=== PATIENT | female | born 1970 | race Hispanic/Latino ===

== ENCOUNTER 2023-03-30 14:48 | Emergency (ER) | payer OTHER, SELFPAY ==
--- OUTSIDE RECORDS SUMMARY | 2023-03-30 14:57 | XMS REPORT | Continuity of Care Document ---
:1970 Author Organization [facility] t Address [address] [place] [address] Care Team Providers Name Role Phone Lucho LOVETT M.D. Primary Care Physician CAROLINE Attending Clinician Unavailable Tara Severino Attending Clinician Unavailable Raoul DIMAS, Hayden Dejesus Attending Clinician [phone] Karlie DIMAS, Kasey Hebert Attending Clinician MIO WYATT Attending Clinician Unavailable JULIENNE BANEGAS Attending Clinician Unavailable Ben Dooley MD Attending Clinician Reji Roque DO Attending Clinician [phone] Nilesh DIMAS, Kallie Attending Clinician Evangelist DIMAS, Lexii Shaw Attending Clinician Herbie DIMAS, Julio Fried Attending Clinician Jorge Baker MD, I Attending Clinician Ben Shelley MD Attending Clinician Mary DIMAS, Elif Delarosa Attending Clinician [phone] Nick Horvath MD Attending Clinician Clau Wheat DO Attending Clinician Thomas DIMAS, Harshil Attending Clinician Janel Baker DO Attending Clinician Keyla Anthony MD Attending Clinician Karsten Kennedy CRNA Attending Clinician [phone] Rogers Han MD Attending Clinician Jethro Angulo MD Attending Clinician [phone] Jaden Martinez MD Attending Clinician Obisesrahel_drake Attending Clinician Unavailable [facility] Attending Clinician Unavailable Miles_Safia Attending Clinician Unavailable DENNIS_KELLIE Admitting Clinician Unavailable Tara Severino Admitting Clinician Unavailable KASEY RG Admitting Clinician Unavailable REJI ROQUE Admitting Clinician Unavailable JORGE BAKER Admitting Clinician Unavailable MD JULIO STONER Admitting Clinician Unavailable MD ELIF ROBERTS Admitting Clinician Unavailable JANEL BAKER Admitting Clinician Unavailable MD HARSHIL GUZMAN Admitting Clinician Unavailable Obisesnick Admitting Clinician Unavailable KYHOP Admitting Clinician Unavailable Miles_M Admitting Clinician Unavailable Payers Payer Name Policy Type Policy Number Effective Date Expiration Date S deepak OTHER CI [id number] OTHER BL [id number] David [id number] [address] [facility] 00:00:00 00:00:00 Patient [facility] Goldy Ragland [id number] [address] [facility] 00:00:00 00:00:00 Patient [facility] Problems Condition Condition Condition Status Onset Resolution Last Treating Co mments Source Name Details Category Date Date Treatment Clinician Date Pyelonephr Pyelonephr Disease Active M ethodi itis itis 07-18 st 00:00: Hospita 00 l Urinary Urinary Disease Active [facility] tract tract 8 st infection infection 00:00: Hosp chanel associated associated 00 l with with indwelling indwelling urethral urethral catheter, catheter, initial initial encounter encounter Urinary Urinary Disease Active [facility] tract tract 8 st infection infection 00:00: Hosp chanel associated associated 00 l with with indwelling indwelling urethral urethral catheter catheter Urinary Urinary Disease Active [facility] retention retention 06-21 st 00:00: Hospita 00 l Status Status Disease Active [facility] post post 06-02 st placement placement 00:00: Hosp chanel of of 00 l ureteral ureteral stent stent Right Right Disease Active [facility] lower lower 06-02 st quadrant quadrant 00:00: Hospit a abdominal abdominal 00 l pain pain Urinary Urinary Disease Active [facility] incontinen incontinen 06-02 st ce ce 00:00: Hospita 00 l Hydronephr Hydronephr Disease Active M ethodi osis with osis with 06-01 st ureteral ureteral 00:00: Hospit a stricture, stricture, 00 l not not elsewhere elsewhere classified classified Acute UTI Acute UTI Disease Active Met hodi 06-02 st 00:00: Hospita 00 l Mixed Mixed Problem Active [facility] anxiety Anxiety 1-07 da and and 00:00: [facility] depressive Depressive 00 al disorder Disorder Health Outreac h Program Vitamin D Vitamin D Problem Active 2019-11 [facility] deficiency Deficiency 2-11 da 00:00: [facility] 00 al [facility] Prediabete Prediabete Problem Active 2019-11 M [facility] s s 2-11 da 00:00: [facility] 00 wy Health [facility]re[facility] Program Lactic Lactic Disease Active [facility] acidosis acidosis 12-14 00:00: Hospita 00 l Cystitis Cystitis Disease Active Metho di 12-14 00:00: Hospita 00 l Dysphagia Dysphagia Disease Active Overview: [facility] 12-[address] 00:00: g of this Hospita 00 note l might be different from the original. Added automatic ally from request for surgery [id number] Malignant Malignant Problem Active [facility] tumor of Tumor of 11-26 da cervix [facility]:00: [facility] Cardiomega Problem Active [facility] S t ly [facility] Sepsis Problem Active [facility] Syncope Problem Active [facility] Bilateral Problem Active [facility] hydronephr [facility] osis [facility]ever Problem Active [facility] Flank pain Problem Active [facility] S t [facility] History of Problem Active [facility] S malignant [facility] neoplasm Patient of cervix [facility] Hyperlipid Problem Active [facility] S t emia [facility] Hypertensi Problem Active [facility] S t on [facility] Hypokalemi Problem Active [facility] S t a [facility] Nausea and Problem Active [facility] S t vomiting [facility] Ureteral Problem Active [facility] stent [facility] Allergies, Adverse Reactions, Alerts Allergy Allergy Status Severity Reaction(s) Onset Inactive Treating Comm ents Source Name Type Date Date Clinician Iodine Allergy Active Severe hives, 2021-[address] [facility] Grapefru Propensi Active Hives Method i it ty to 06-02 st adverse 00:00: Hospita reaction 00 l s to drug Iodine Propensi Active Swelling Per pt, Metho di ty to 1-18 "throat st adverse 00:00: swells Hospita reaction 00 up" l s to drug iodine DA Active [facility] Social History Social Habit Start Date Stop Date Quantity Comments Source History SDOH [facility] Alcohol Std Drinks Hospit al History SDOH [facility] Gender identity [facility] Sexual orientation [facility] History of tobacco [facility] Alcohol intake 2022-12-20 2022-12-20 Lifetime [facility] 00:00:00 00:00:00 non-drinker Hospital (finding) History of Social 2022-12-20 2022-12-[address] function 00:00:00 00:00:00 Hospital History SDOH 2019-12-15 2019-12-15 1 [facility] Alcohol Frequency 00:00:00 00:00:00 Hospita l Tobacco use and 2019-12-13 2019-12-13 Smokeless [facility] exposure 00:00:00 00:00:00 tobacco non-user Hospital Sex Assigned At [birth year] [facility] 00:00:00 00:00:00 Hospital Smoking Status Start Date Stop Date Source Never smoked tobacco (finding) [facility] Medications Ordered Filled Start Stop Current Ordering Indication Dosage Frequency Signature Comments Components Source Medication Medication Date Date Medication? Clinician (SIG) Name Name Tramadol Tramadol Yes [address] Hcl Hcl 3-27 Hours as [facility] 23:51: needed for Patient 09 Pain [facility] Amlodipine Amlodipine [address] Besylate Besylate 3-27 [facility] 23:51: Patient 00 [facility] Oxybutynin Oxybutynin Yes [address] Chloride Chloride 3-27 needed for L [facility] 23:51: Bladder Patient 00 Spasms [facility] Nitrofurant Nitrofurant Yes [address] oin oin 2-27 [facility] Monohyd/M-C Monohyd/M-C 15:41: Patient ryst ryst 00 s (Macrobid (Macrobid Medic al 100 Mg 100 Mg Center Capsule) Capsule) 100 Mg 100 Mg CAPSULE CAPSULE amLODIPine Yes 5mg QD Take 1 Metho di (NORVASC) 5 1-27 tablet (5 st mg tablet 16:56: mg total) Hos igor 03 by mouth l daily. oxybutynin Yes 5mg QD Take 1 Metho di XL 1-27 tablet (5 st (DITROPAN-X 16:56: mg total) H ospita L) 5 MG 24 03 by mouth l hr tablet daily. amLODIPine 2023-0 Yes 5mg QD Take 1 Metho di (NORVASC) 5 12-22 tablet (5 st mg tablet 16:56: mg total) Hos igor 03 by mouth l daily. oxybutynin 2023-0 Yes 5mg QD Take 1 Metho di XL 12-22 tablet (5 st (DITROPAN-X 16:56: mg total) H ospita L) 5 MG 24 03 by mouth l hr tablet daily. nitrofurant 2023-0 2023- No 100mg QD Take 1 Me thodi oin, 12-[address] macrocrysta 16:56: 00:00 (100 mg Ho spita l-monohydra 03 :00 total) by l te, mouth (MACROBID) daily. 100 MG capsule nitrofurant 2023-0 2023- No 100mg QD Take 1 Me thodi oin, 12-[address] macrocrysta 16:56: 00:00 (100 mg Ho spita l-monohydra 03 :00 total) by l te, mouth (MACROBID) daily. 100 MG capsule atorvastati 2023-0 Yes 10mg QD Take 1 Meth iliana n (LIPITOR) - tablet (10 st 10 mg 16:57: mg total) Hospita tablet 40 by mouth l daily. atorvastati 2023-0 Yes 10mg QD Take 1 Meth iliana n (LIPITOR) - tablet (10 st 10 mg 16:57: mg total) Hospita tablet 40 by mouth l daily. cephalexin 2023-0 2023- No 500mg [id number] Take 1 [facility] (Keflex) 12-21 02-10 [id number] capsule s t 500 MG 00:00: 05:59 3D (500 mg Hospita capsule 00 :00 total) by l mouth 3 (three) times a day for 14 days. cephalexin 2023-0 2023- No 500mg [id number] Take 1 [facility] (Keflex) 12-21 02-10 [id number] capsule s t 500 MG 00:00: 05:59 3D (500 mg Hospita capsule 00 :00 total) by l mouth 3 (three) times a day for 14 days. cholecalcif No [id number] Q7D Take 50 Methodi jason, 1-25 01-[address] vitamin D3, 13:36: 00:00 (50,000 Ho spita 1,000 unit 07 :00 Units l tablet total) by mouth once a week. cholecalcif 2022- No [id number] Q7D Take 50 Methodi jason, 1-25 01-[address] vitamin D3, 13:36: 00:00 (50,000 Ho spita 1,000 unit 07 :00 Units l tablet total) by mouth once a week. Atorvastati Atorvastati 2021-[address] n Calcium n Calcium 208 9:00PM [facility] 12:26: Patient 00 [facility] Cefdinir Cefdinir 2021-[address] (Omnicef) (Omnicef) 205 Day [facility] 300 Mg 300 Mg 18:46: Patient CAPSULE CAPSULE 00 [facility] Oxybutynin Oxybutynin 2021-[address] Chloride Chloride 2-05 [facility] (Ditropan (Ditropan 18:46: Pat ient Xl) 5 Mg Xl) 5 Mg 00 s TAB.ER.24 TAB.ER.24 [facility] Oxybutynin Oxybutynin 2021-[address] Chloride Chloride 2-05 [facility] (Ditropan (Ditropan 18:46: Pat ient Xl) 5 Mg Xl) 5 Mg 00 s TAB.ER.24 TAB.ER.24 [facility] Cefdinir Cefdinir 2021-11 No [address] t. (Omnicef) (Omnicef) 2-05 02-27 Day [facility] 300 Mg 300 Mg 18:46: 16:41 Patient CAPSULE CAPSULE 00 :00 [facility] Ciprofloxac Ciprofloxac 2021-11 [address] in Hcl in Hcl 1-13 Hours [facility] (Cipro) 500 (Cipro) 500 17:51: Patient Mg TABLET Mg TABLET 00 s [facility] Ciprofloxac Ciprofloxac 2021-11 Yes [address] in Hcl in Hcl 1-13 Hours [facility] (Cipro) 500 (Cipro) 500 17:51: Patient Mg TABLET Mg TABLET 00 s [facility] Ciprofloxac Ciprofloxac 2021-11- No [address] in Hcl in Hcl 1-13 12-08 Hours [facility] (Cipro) 500 (Cipro) 500 17:51: 13:26 Patient Mg TABLET Mg TABLET 00 :00 [facility] cholecalcif Yes [id number] Q7D Take 50 M ethodi jason, 8-[address] vitamin D3, 20:45: (50,000 Hos [facility]or 1,000 unit 03 Units l tablet total) by mouth once a week. cholecalcif Yes [id number] Q7D Take 50 M ethodi jason, 8-[address] vitamin D3, 20:45: (50,000 Hos igor 1,000 unit 03 Units l tablet total) by mouth once a week. atorvastati Yes 10mg QD Take 10 mg Methodi n (LIPITOR) 8-[address] 10 mg 20:58: daily. Hospita tablet 14 l atorvastati Yes 10mg QD Take 10 mg Methodi n (LIPITOR) 8-[address] 10 mg 20:58: daily. Hospita tablet 14 l nitrofurant 2021- No 100mg QD Take 1 Me thodi oin, 8-20 10-[address] macrocrysta 00:00: 05:59 (100 mg Ho spita l-monohydra 00 :00 total) by l te, mouth (Macrobid) daily for 100 MG 90 days. capsule nitrofurant 2021-0 2021- No 100mg QD Take 1 Me thodi oin, 8-25 11-[address] macrocrysta 00:00: 05:59 (100 mg Ho spita l-monohydra 00 :00 total) by l te, mouth (Macrobid) daily for 100 MG 90 days. capsule nitrofurant 2021- No 100mg QD Take 1 Me thodi oin, 8- 11-[address] macrocrysta 00:00: 05:59 (100 mg Ho spita l-monohydra 00 :00 total) by l te, mouth (Macrobid) daily for 100 MG 90 days. capsule nitrofurant 2021- No 100mg QD Take 1 Me thodi oin, 07-[address] macrocrysta 00:00: 05:59 (100 mg Ho spita l-monohydra 00 :00 total) by l te, mouth (Macrobid) daily for 100 MG 90 days. capsule amoxicillin 2021- No 1{tbl} Q.5D Take 1 M ethodi -pot 07-[address] clavulanate 00:00: 04:59 mouth 2 Ho spita (Augmentin) 00 :00 (two) l 875-125 mg times a per tablet day for 7 days. amoxicillin 2021- No 1{tbl} Q.5D Take 1 M ethodi -pot 07-[address] clavulanate 00:00: 04:59 mouth 2 Ho spita (Augmentin) 00 :00 (two) l 875-125 mg times a per tablet day for 7 days. amoxicillin 2021- No 1{tbl} Q.5D Take 1 M ethodi -pot 07-[address] clavulanate 00:00: 04:59 mouth 2 Ho spita (Augmentin) 00 :00 (two) l 875-125 mg times a per tablet day for 7 days. amoxicillin 2021- No 1{tbl} Q.5D Take 1 M ethodi -pot 07-[address] clavulanate 00:00: 04:59 mouth 2 Ho spita (Augmentin) 00 :00 (two) l 875-125 mg times a per tablet day for 7 days. morPHINE 2021-2021- No [id number] 15mg Q12H Take 1 Metho di immediate-r 07-20-31 tablet (15 s t elease 15 00:00: 04:59 mg total) Ho spita MG tablet 00 :00 by mouth l every 12 (twelve) hours as needed for severe pain for up to 5 days .acute pain. Max Daily Amount: 30 mg morPHINE 2021-2021- [place] [id number] 15mg Q12H Take 1 Metho di immediate-r 8-25 -31 tablet (15 s t elease 15 00:00: 04:59 mg total) Ho spita MG tablet 00 :00 by mouth l every 12 (twelve) hours as needed for severe pain for up to 5 days .acute pain. Max Daily Amount: 30 mg morPHINE 2022-0 2- No [id number] 15mg Q12H Take 1 Metho di immediate-r 8-25 -31 tablet (15 s t elease 15 00:00: 04:59 mg total) Ho spita MG tablet 00 :00 by mouth l every 12 (twelve) hours as needed for severe pain for up to 5 days .acute pain. Max Daily Amount: 30 mg morPHINE 2022-0 2- No [id number] 15mg Q12H Take 1 Metho di immediate-r 8-25 - tablet (15 s t elease 15 00:00: 04:59 mg total) Ho spita MG tablet 00 :00 by mouth l every 12 (twelve) hours as needed for severe pain for up to 5 days .acute pain. Max Daily Amount: 30 mg sulfamethox 2021-0 2021- No 1{tbl} Q.5D Take 1 M ethodi azole-trime 06-28 [facility]: 04:59 mouth Hospita (BACTRIM 00 :00 every 12 l DS) 800-160 (twelve) mg per hours for tablet 7 days. sulfamethox 202-0 2021- No 1{tbl} Q.5D Take 1 M ethodi azole-trime 06-28 tablet by reading hospitaloprim 00:00: 04:59 mouth Hospita (BACTRIM 00 :00 every 12 l DS) 800-160 (twelve) mg per hours for tablet 7 days. sulfamethox 2-0 2021- No 1{tbl} Q.5D Take 1 M ethodi azole-trime 06-28 tablet by reading hospitaloprim 00:00: 04:59 mouth Hospita (BACTRIM 00 :00 every 12 l DS) 800-160 (twelve) mg per hours for tablet 7 days. sulfamethox 2022-0 2021- No 1{tbl} Q.5D Take 1 M ethodi azole-trime [address] thoprim 00:00: 04:59 mouth Hospita (BACTRIM 00 :00 every 12 l DS) 800-160 (twelve) mg per hours for tablet 7 days. metformin 2021- No Q.5D Take by Meth iliana HCl 06-[address] (METFORMIN 02:35: 00:00 (two) Hospi ta ORAL) 54 :00 times a l day with meals. Unsure of dosage metformin 2021- No Q.5D Take by Meth iliana HCl 06-[address] (METFORMIN 02:35: 00:00 (two) Hospi ta ORAL) 54 :00 times a l day with meals. Unsure of dosage metformin 2021- No Q.5D Take by Meth iliana HCl 06-[address] (METFORMIN 02:35: 00:00 (two) Hospi ta ORAL) 54 :00 times a l day with meals. Unsure of dosage metformin 2021- No Q.5D Take by Meth iliana HCl 06-[address] (METFORMIN 02:35: 00:00 (two) Hospi ta ORAL) 54 :00 times a l day with meals. Unsure of dosage amLODIPine 2021- No 5mg QD Take 1 Meth iliana (NORVASC) 5 7-30 08-30 tablet (5 st mg tablet 00:00: 04:59 mg total) Ho spita 00 :00 by mouth l daily for 30 days. amLODIPine 2021- No 5mg QD Take 1 Meth iliana (NORVASC) 5 7-30 08-30 tablet (5 st mg tablet 00:00: 04:59 mg total) Ho spita 00 :00 by mouth l daily for 30 days. amLODIPine 2021-2021- No 5mg QD Take 1 Meth iliana (NORVASC) 5 7-30 08-30 tablet (5 st mg tablet 00:00: 04:59 mg total) Ho spita 00 :00 by mouth l daily for 30 days. amLODIPine 2021- No 5mg QD Take 1 Meth iliana (NORVASC) 5 7-30 08-30 tablet (5 st mg tablet 00:00: 04:59 mg total) Ho spita 00 :00 by mouth l daily for 30 days. amLODIPine 2-0 2022- No 2.5mg QD Take 2.5 M ethodi (NORVASC) 06-23 07-[address] 2.5 mg 19:34: 00:00 mouth Hospita tablet 26 :00 daily. l amLODIPine 2-0 2022- No 2.5mg QD Take 2.5 M ethodi (NORVASC) 06-23 07-[address] 2.5 mg 19:34: 00:00 mouth Hospita tablet 26 :00 daily. l amLODIPine 2021-0 2022- No 2.5mg QD Take 2.5 M ethodi (NORVASC) 06-23 07-[address] 2.5 mg 19:34: 00:00 mouth Hospita tablet 26 :00 daily. l amLODIPine 2021-0 2022- No 2.5mg QD Take 2.5 M ethodi (NORVASC) 06-23-[address] 2.5 mg :34: 00:00 mouth Hospita tablet 26 :00 daily. l ciprofloxac 2021-0 2022- No 500mg Q.5D Take 1 Me thodi in (CIPRO) 06-[address] 500 MG 00:00: 00:00 (500 mg Hospita tablet 00 :00 total) by l mouth 2 (two) times a day for 7 days. ciprofloxac 2-0 2022- No 500mg Q.5D Take 1 Me thodi in (CIPRO) 06-23- tablet st 500 MG 00:00: 00:00 (500 mg Hospita tablet 00 :00 total) by l mouth 2 (two) times a day for 7 days. ciprofloxac 2-0 2022- No 500mg Q.5D Take 1 Me thodi in (CIPRO) 06-23- tablet st 500 MG 00:00: 00:00 (500 mg Hospita tablet 00 :00 total) by l mouth 2 (two) times a day for 7 days. ciprofloxac 2022-0 2022- No 500mg Q.5D Take 1 Me thodi in (CIPRO) 06-23- tablet st 500 MG 00:00: 00:00 (500 mg Hospita tablet 00 :00 total) by l mouth 2 (two) times a day for 7 days. ciprofloxac 2022-0 2022- No 750mg Q.5D Take 1 Me thodi in HCl 06-[address] (CIPRO) 750 00:00: 04:59 (750 mg Ho spita MG tablet 00 :00 total) by l mouth 2 (two) times a day for 7 days. ciprofloxac 2022-0 2022- No 750mg Q.5D Take 1 Me thodi in HCl 06-[address] (CIPRO) 750 00:00: 04:59 (750 mg Ho spita MG tablet 00 :00 total) by l mouth 2 (two) times a day for 7 days. ciprofloxac 2021-0 2022- No 750mg Q.5D Take 1 Me thodi in HCl 06-[address] (CIPRO) 750 00:00: 04:59 (750 mg Ho spita MG tablet 00 :00 total) by l mouth 2 (two) times a day for 7 days. ciprofloxac 2-0 2022- No 750mg Q.5D Take 1 Me thodi in HCl 06-[address] (CIPRO) 750 00:00: 04:59 (750 mg Ho spita MG tablet 00 :00 total) by l mouth 2 (two) times a day for 7 days. keTOROlac 1-0 2021- No 10mg Q6H Take 1 Metho di (TORadol) 7-09 01-16 tablet (10 st 10 mg 00:00: 04:59 mg total) Hospit a tablet 00 :00 by mouth l every 6 (six) hours as needed for moderate pain for up to 5 days. keTOROlac 2021-0 2021- No 10mg Q6H Take 1 Metho di (TORadol) 7-10 07-10 tablet (10 st 10 mg 00:00: 00:00 mg total) Hospit a tablet 00 :00 by mouth l every 6 (six) hours as needed for moderate pain for up to 5 days. keTOROlac 2021-0 2021- No 10mg Q6H Take 1 Metho di (TORadol) 7-10 07-10 tablet (10 st 10 mg 00:00: 00:00 mg total) Hospit a tablet 00 :00 by mouth l every 6 (six) hours as needed for moderate pain for up to 5 days. atorvastati Yes 10mg QD Take 10 mg Methodi n (LIPITOR) 06-[address] 10 mg 23:39: daily. Hospita tablet 46 l amLODIPine Yes 2.5mg QD Take 2.5 Me thodi (NORVASC) 06-[address] 2.5 mg 23:39: mouth Hospita tablet 46 daily. l metformin Yes Q.5D Take by Metho di HCl 06-[address] (METFORMIN 23:39: (two) Hospit a ORAL) 46 times a l day with meals. Unsure of dosage levoFLOXaci No 500mg QD Take 1 Me thodi n 06-03 07-[address] (Levaquin) 00:00: 04:59 (500 mg Hos igor 500 MG 00 :00 total) by l tablet mouth daily [place] 14 [place] [id number] 50mg Q6H Take 1 Metho di (Ultram) 50 06-03 07-20 tablet (50 s t mg tablet 00:00: 04:59 mg total) Ho spita 00 :00 by mouth l every 6 (six) hours as needed for moderate pain for up to 10 days .acute pain. ceftriaxone ceftriaxone No ceftriaxon [place] 1 gram 1 gram 3-25 e 1 gram da solution solution 16:22: solution E [facility] for for 42 for al injectionTa injectionTa injectionT [facility] ke 1 g by ke 1 g by rolan 1 g by Outreac injection injection injection h route. route. route. Program albuterol albuterol No albuterol [place] sulfate HFA sulfate HFA sulfate da 90 90 HFA 90 [facility] mcg/actuati mcg/actuati mcg/actuat al on aerosol on aerosol ion Hea lth inhaler INL inhaler INL aerosol Outreac 1 TO 2 PFS 1 TO 2 PFS inhaler h PO Q 4 TO 6 PO Q 4 TO 6 INL 1 TO 2 Program H PRF COUGH H PRF COUGH PFS PO Q 4 TO 6 H PRF COUGH amlodipine amlodipine No 1 Q1D amlodipine [place] 5 mg tablet 5 mg tablet 5 mg d a Take 1 Take 1 tablet [facility] tablet tablet Take 1 al every day every day tablet Hea lth by oral by oral every day Outr eac route for route for by oral h 30 days. 30 days. route for Pr ogram 30 days. atorvastati atorvastati No atorvastat [place] n 10 mg n 10 mg in 10 mg da tablet TAKE tablet TAKE tablet [facility] 1 TABLET BY 1 TABLET BY TAKE 1 al MOUTH EVERY MOUTH EVERY TABLET BY Health DAY AT DAY AT MOUTH Outreac BEDTIME BEDTIME EVERY DAY h AT BEDTIME Program buspirone buspirone No buspirone [place] 7.5 mg 7.5 mg 7.5 mg da tablet TAKE tablet TAKE tablet [facility] ONE (1) ONE (1) TAKE ONE al TABLET(S) TABLET(S) (1) Healt h BY MOUTH BY MOUTH TABLET(S) Ou treac TWICE A TWICE A BY MOUTH h DAY. DAY. TWICE A Program DAY. ceftriaxone ceftriaxone No 1g ceftriaxon [place] 1 gram 1 gram e 1 gram da solution solution solution Epi sc[facility] for for for al injection injection injection Health Take 1 g by Take 1 g by Take 1 g Outreac injection injection by h route. route. injection Progra m route. cholestyram cholestyram No 4g TID cholestyra [place] ine (bulk) ine (bulk) mine da powder Take powder Take (bulk) [facility] 4 g 3 times 4 g 3 times powder al a day by a day by Take 4 g 3 H ealth miscell. miscell. times a Outr eac route route day by h before before miscell. Program meals for meals for route 30 days. 30 days. before meals for 30 days. cholestyram cholestyram No cholestyra [place] ine (with ine (with mine (with da sugar) 4 sugar) 4 sugar) 4 Epi scop gram oral gram oral gram oral al powder TAKE powder TAKE powder Health 4GM BY 4GM BY TAKE 4GM Outreac MOUTH MOUTH BY MOUTH h DIRECTED DIRECTED Program THREE TIMES THREE TIMES DIRECTED DAILY DAILY THREE BEFORE BEFORE TIMES MEALS MEALS DAILY BEFORE MEALS ergocalcife ergocalcife No ergocalcif [place] rol rol jason da (vitamin (vitamin (vitamin Epi scop D2) 1,250 D2) 1,250 D2) 1,250 al mcg (50,000 mcg (50,000 mcg H ealth unit) unit) (50,000 Outreac capsule capsule unit) h TAKE 1 TAKE 1 capsule Program CAPSULE BY CAPSULE BY TAKE 1 MOUTH EVERY MOUTH EVERY CAPSULE BY WEEK WEEK MOUTH EVERY WEEK metformin metformin No metformin [place] ER 500 mg ER 500 mg ER 500 mg da tablet,exte tablet,exte tablet,ext [facility] nded nded ended al release 24 release 24 release 24 Health hr TAKE 1 hr TAKE 1 hr TAKE 1 Outreac TABLET BY TABLET BY TABLET BY h MOUTH EVERY MOUTH EVERY MOUTH Program DAY DAY EVERY DAY zolpidem 5 zolpidem 5 No zolpidem 5 [place] mg tablet mg tablet mg tablet da TAKE ONE TAKE ONE TAKE ONE Epi scop (1) (1) (1) al TABLET(S) TABLET(S) TABLET(S) Health BY MOUTH BY MOUTH BY MOUTH Out reac EVERY DAY. EVERY DAY. EVERY DAY. h Program Vital Signs Vital Name Observation Time Observation Value Comments Source Oxygen saturation by 2023-02-23 17:06:00 100 /min [facility] Pulse oximetry Patient [facility] BP Diastolic 2023-02-23 17:06:00 82 mm[Hg] [facility] Body Temperature 2023-02-20 07:22:00 100.0 [degF] [facility] BMI (Body Mass 2023-02-19 23:30:00 25.9 kg/m2 [facility] Index) [facility] Height 2023-02-19 13:12:00 [id number] cm [facility] Weight 2023-02-19 13:12:00 58.824848 kg [facility] Oxygen saturation by 2022-10-30 18:32:00 99 /min [facility] Pulse oximetry Patient [facility] Height 2022-10-30 16:18:00 149.850647 cm [facility] Weight 2022-10-30 16:18:00 58.871160 kg [facility] BMI (Body Mass 2022-10-30 16:18:00 25.9 kg/m2 [facility] Index) Patient [facility] Oxygen saturation by 2022-10-08 18:20:00 99 /min [facility] Pulse oximetry Patient [facility] BP Diastolic 2022-10-08 18:20:00 84 mm[Hg] [facility] Oxygen saturation by 2022-10-08 18:20:00 99 /min [facility] Pulse oximetry Patient [facility] BP Diastolic 2022-10-08 18:20:00 84 mm[Hg] [facility] Height 2022-10-08 14:22:00 149.171691 cm [facility] Weight 2022-10-08 14:22:00 58.041704 kg [facility] BMI (Body Mass 2022-10-08 14:22:00 25.9 kg/m2 [facility] Index) Patient [facility] BP Diastolic 2021-02-17 00:00:00 81 mm[Hg] [place] [facility] Height 2021-02-17 00:00:00 59 [in_i] [place] [facility] BMI (Body Mass 2021-02-17 00:00:00 27.9 kg/m2 [facility] 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 Index) [facility] BP Systolic 2021-02-17 00:00:00 121 mm[Hg] [place] [facility] Body Weight 2021-02-17 00:00:00 138 [lb_av] [place] [facility] BP Diastolic 2020-12-02 00:00:00 85 mm[Hg] [place] [facility] Height 2020-12-02 00:00:00 59 [in_i] [place] [facility] BMI (Body Mass 2020-12-02 00:00:00 28.1 kg/m2 [place] 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 Index) [facility] BP Systolic 2020-12-02 00:00:00 132 mm[Hg] [place] [facility] Body Weight 2020-12-02 00:00:00 2224 [oz_av] [place] [facility] BP Diastolic 2020-11-03 00:00:00 86 mm[Hg] [place] [facility] Height 2020-11-03 00:00:00 59 [in_i] [place] [facility] BMI (Body Mass 2020-11-03 00:00:00 27.3 kg/m2 [facility] 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 Index) [facility] BP Systolic 2020-11-03 00:00:00 140 mm[Hg] [place] [facility] Body Weight 2020-11-03 00:00:00 2160 [oz_av] [place] [facility] BP Diastolic 2020-11-02 00:00:00 100 mm[Hg] [place] [facility] Height 2020-11-02 00:00:00 59 [in_i] [place] [facility] BMI (Body Mass 2020-11-02 00:00:00 27.6 kg/m2 [facility] 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 Index) [facility] BP Systolic 2020-11-02 00:00:00 139 mm[Hg] [place] [facility] Body Weight 2020-11-02 00:00:00 136.8 [lb_av] [place] [facility] Systolic blood 2022-12-21 20:58:08 131 mm[Hg] [facility] pressure Diastolic blood 2022-12-21 20:58:08 76 mm[Hg] [facility] pressure Heart rate 2022-12-21 20:58:08 79 /min [facility] Body temperature 2022-12-21 20:58:08 36.39 [facility] Respiratory rate 2022-12-21 20:58:08 22 /min [facility] Oxygen saturation in 2022-12-21 20:58:08 99 /min [facility] Arterial blood by Pulse oximetry Body weight 2022-12-20 19:32:00 57.38 kg [facility] BMI 2022-12-20 19:32:00 25.55 kg/m2 [facility] Body height 2022-12-20 09:12:00 149.9 cm [facility] Systolic blood 2022-07-21 00:09:51 110 mm[Hg] [facility] pressure Diastolic blood 2022-07-21 00:09:51 77 mm[Hg] [facility] Hospital pressure Heart rate 2022-07-21 00:09:51 90 /min [facility] Body temperature 2022-07-21 00:09:51 36.78 [facility] Respiratory rate 2022-07-21 00:09:51 18 /min [facility] Oxygen saturation in 2022-07-21 00:09:51 97 /min [facility] Arterial blood by Pulse oximetry Body height 2022-07-18 17:57:00 149.9 cm [facility] Body weight 2022-07-18 17:57:00 58.968 kg [facility] BMI 2022-07-18 17:57:00 26.26 kg/m2 [facility] Body temperature 2021-06-03 21:44:00 37.72 [facility] Systolic blood 2021-06-03 20:00:00 111 mm[Hg] [facility] Hospital pressure Diastolic blood 2021-06-03 20:00:00 66 mm[Hg] [facility] Hospital pressure Heart rate 2021-06-03 20:00:00 81 /min [facility] Respiratory rate 2021-06-03 20:00:00 18 /min [facility] Oxygen saturation in 2021-06-03 20:00:00 98 /min [facility] Arterial blood by Pulse oximetry Body height 2021-06-02 17:23:00 149.9 cm [facility] Body weight 2021-06-02 03:48:00 67.132 kg [facility] BMI 2021-06-02 03:48:00 29.89 kg/m2 [facility] Procedures Procedure Date / Time Performing Clinician Source Performed CT of abdomen and pelvis 2023-02-19 13:35:00 [facility] CBC WITH PLATELET AND 2022-12-21 12:26:00 Florecita Johnson [facility] DIFFERENTIAL [facility] PROTHROMBIN TIME WITH INR 2022-12-21 12:26:00 JumawanAbbott [facility] [place] PARTIAL THROMBOPLASTIN 2022-12-21 12:26:00 [facility] TIME (PTT) [place] COMPREHENSIVE METABOLIC 2022-12-21 12:26:00 [facility] PANEL [place] MAGNESIUM LEVEL 2022-12-21 12:26:00 [facility] ospital [place] ESTIMATED GFR 2022-12-21 12:26:00 [facility] LACTIC ACID LEVEL, SEPSIS 2022-12-20 15:38:00 [facility] - NOW AND REPEAT 2X EVERY 3 HOURS COVID-19 QUALITATIVE 2022-12-20 14:02:00 [facility] RT-PCR LACTIC ACID LEVEL, SEPSIS 2022-12-20 12:25:00 [facility] - NOW AND REPEAT 2X EVERY 3 HOURS URINE CULTURE 2022-12-20 11:59:[address] [facility] URINALYSIS SCREEN AND 2022-12-20 11:33:00 [facility] MICROSCOPY, WITH REFLEX TO CULTURE CT RENAL STONE PROTOCOL 2022-12-20 09:46:16 [facility] BLOOD CULTURE, AEROBIC & 2022-12-20 09:21:00 [facility] ANAEROBIC CBC WITH PLATELET AND 2022-12-20 09:21:00 [facility] DIFFERENTIAL COMPREHENSIVE METABOLIC 2022-12-20 09:21:00 [facility] PANEL LIPASE LEVEL 2022-12-20 09:21:[address] [facility] LACTIC ACID LEVEL, SEPSIS 2022-12-20 09:21:00 [facility] - NOW AND REPEAT 2X EVERY 3 HOURS ESTIMATED GFR 2022-12-20 09:21:[address] [facility] US DUPLEX VENOUS LOWER 2022-07-20 15:07:00 Nilesh [facility] EXTREMITY RIGHT BASIC METABOLIC PANEL 2022-07-20 11:42:00 Nilesh [facility] CBC HEMOGRAM 2022-07-20 11:42:00 Kallie Galloway spital ESTIMATED GFR 2022-07-20 11:42:00 Kallie Galloway spital POC GLUCOSE 2022-07-20 00:32:00 Reji Roque H ospital Evangelist BASIC METABOLIC PANEL 2022-07-19 14:13:00 Nilesh [facility] ESTIMATED GFR 2022-07-19 14:13:00 Nilesh [facility] Mandaen Ho spital COVID-19 QUALITATIVE 2022-07-19 04:52:00 [facility] RT-PCR LACTIC ACID LEVEL, SEPSIS 2022-07-19 04:25:00 [facility] - NOW AND REPEAT 2X EVERY 3 HOURS URINE CULTURE 2022-07-19 01:34:[address] [facility] ospital HCG QUALITATIVE, URINE 2022-07-19 01:01:00 [facility] SCREEN URINALYSIS SCREEN AND 2022-07-19 00:55:00 Ben Dooley [facility] MICROSCOPY, WITH REFLEX TO CULTURE LACTIC ACID LEVEL, SEPSIS 2022-07-18 21:51:00 [facility] - NOW AND REPEAT 2X EVERY 3 HOURS BLOOD CULTURE, AEROBIC & 2022-07-18 21:50:00 [facility] ANAEROBIC CT RENAL STONE PROTOCOL 2022-07-18 20:59:54 [facility] CBC WITH PLATELET AND 2022-07-18 20:00:00 [facility] DIFFERENTIAL COMPREHENSIVE METABOLIC 2022-07-18 20:00:00 [facility] PANEL LIPASE LEVEL 2022-07-18 20:00:00 [facility] HCG QUALITATIVE, SERUM 2022-07-18 20:00:00 [facility] SCREEN ESTIMATED GFR 2022-07-18 20:00:00 ScoutAndreeaNguyendusty Herrera [facility] POC GLUCOSE 2022-06-28 12:37:00 Carmita Bakeram Nelson [facility] POC GLUCOSE 2022-06-28 11:32:00 Nissa Bakerurram I [facility] POC GLUCOSE 2022-06-28 01:35:00 Nissa Bakerurram I [facility] POC GLUCOSE 2022-06-27 21:18:00 Nissa Bakerurram I [facility] POC GLUCOSE 2022-06-27 16:23:00 Nissa Bakerurram I [facility] POC GLUCOSE 2022-06-27 12:21:00 Nissa Bakerurram I [facility] BASIC METABOLIC PANEL 2022-06-27 10:33:00 Carmita Bakeram [facility] CBC WITH PLATELET AND 2022-06-27 10:33:00 Baker, Jorge [facility] DIFFERENTIAL ESTIMATED GFR 2022-06-27 10:33:00 Carmita Bakeram Nelson [facility] POC GLUCOSE 2022-06-27 01:22:00 Nissa Bakerurram I [facility] POC GLUCOSE 2022-06-26 21:35:00 Carmita Bakeram I [facility] POC GLUCOSE 2022-06-26 16:19:00 Carmita Bakeram Nelson [facility] POC GLUCOSE 2022-06-26 12:40:00 Carmita Bakeram Nelson [facility] LACTIC ACID LEVEL, SEPSIS 2022-06-26 11:46:00 Lexii Blanca [facility] - NOW AND REPEAT 2X EVERY 3 HOURS COVID-19 QUALITATIVE 2022-06-26 06:53:00 Lexii Blanca [facility] RT-PCR LACTIC ACID LEVEL, SEPSIS 2022-06-26 05:59:00 Lexii Blanca [facility] - NOW AND REPEAT 2X EVERY 3 HOURS HEMOGLOBIN A1C 2022-06-26 05:56:00 Viviane Briceño Ho spital LIPID PANEL 2022-06-26 05:56:00 Viviane Briceño Ho spital URINE CULTURE 2022-06-26 04:49[facility]00 [facility] AND 2022-06-26 04:27[facility]00 [facility], WITH REFLEX TO CULTURE BLOOD CULTURE, AEROBIC & 2022-06-26 04:21[facility] WITH PLATELET AND 2022-06-26 04:21:00 [facility] DIFFERENTIAL COMPREHENSIVE METABOLIC 2022-06-26 04:21[facility]00 [facility] LACTIC ACID LEVEL, SEPSIS 2022-06-26 04:21:00 Evangelist [facility] - NOW AND REPEAT 2X EVERY 3 HOURS HCG QUANTITATIVE, SERUM 2022-06-26 04:21:00 [facility] ESTIMATED GFR 2022-06-26 04:21:00 [facility] ECG ED PRELIMINARY 2022-06-26 04:19:42 Evangelist [facility] INTERPRETATION CT RENAL STONE PROTOCOL 2022-06-26 04:07:46 [facility]LEAD 2022-06-26 03:00:31 [facility] POC [facility]SE 2022-06-23 21:21:00 [facility] A POTASSIUM LEVEL 2022-06-23 17:46:00 [facility] A POC GLUCOSE 2022-06-23 16:49:00 [facility] 2022-06-23 12:13:00 Karsten [facility] CBC WITH PLATELET AND 2022-06-23 11:44:00 [facility] DIFFERENTIAL [facility] A COMPREHENSIVE METABOLIC 2022-06-23 11:44:00 [facility] PANEL [facility] A ESTIMATED GFR 2022-06-23 11:44:00 [facility] A POTASSIUM LEVEL 2022-06-22 23:26:00 Kasey Rg [facility] Eliana Hebert CBC HEMOGRAM 2022-06-22 11:26:00 [facility] BASIC METABOLIC PANEL 2022-06-22 11:26:00 [facility] ESTIMATED GFR 2022-06-22 11:26:00 [facility] LACTIC ACID LEVEL, SEPSIS 2022-06-21 12:00:00 [facility] - NOW AND REPEAT 2X EVERY 3 HOURS URINE CULTURE 2022-06-21 10:30:00 Ben Shelley [facility] COVID-19 QUALITATIVE 2022-06-21 10:08:00 [facility] RT-PCR URINALYSIS SCREEN AND 2022-06-21 09:48:00 [facility], WITH REFLEX TO CULTURE HCG QUALITATIVE, URINE 2022-06-21 09:48:00 [facility] SCREEN LACTIC ACID LEVEL, SEPSIS 2022-06-21 09:03:00 [facility] NOW AND REPEAT 2X EVERY 3 HOURS MI CRITICAL CARE 2022-06-21 06:21:24 [facility] ILL/INJURED PATIENT INIT 30-74 MIN BLOOD CULTURE, AEROBIC & 2022-06-21 06:20:00 [facility] ANAEROBIC CBC WITH PLATELET AND 2022-06-21 06:20:00 [facility] DIFFERENTIAL COMPREHENSIVE METABOLIC 2022-06-21 06:20:00 [facility] PANEL LACTIC ACID LEVEL, SEPSIS 2022-06-21 06:20:00 [facility] NOW AND REPEAT 2X EVERY 3 HOURS ESTIMATED GFR 2022-06-21 06:20:00 [facility] CT RENAL STONE PROTOCOL 2022-06-21 06:18:26 [facility] FL PYELOGRAM RETROGRADE 2022-06-02 14:27:00 Rogers Han Phu [facility] MI AN ELECTIVE 2022-06-02 13:35:00 [facility] SUPRAGLOTTIC AIRWAY Nichalaus CYSTO STENT INSERTION 2022-06-02 13:24:00 Rogers Han [place] [id number] ANTI-SPIKE IGG 2022-06-02 10:10:00 Teddy Jameson [facility] ANTIBODY TITER Serjio CBC WITH PLATELET AND 2022-06-02 10:10:[address] [facility] DIFFERENTIAL BASIC METABOLIC PANEL 2022-06-02 10:10:00 Rogers Han [facility]19 SEROLOGY 2022-06-02 10:10:00 Teddy Jameson [facility] PATIENT SURVEILLANCE Serjio ESTIMATED GFR 2022-06-02 10:10:00 YrnuigbAbe del toro [facility] HEMOGLOBIN A1C 2022-06-01 09:37:00 [facility] LIPID PANEL 2022-06-01 09:37:00 [facility] COVID-19 QUALITATIVE 2022-06-01 09:35:00 Clau Wheat [facility] RT-PCR COMPREHENSIVE METABOLIC 2022-06-01 05:38:00 SvClau matamoros [facility] PANEL CBC WITH PLATELET AND 2022-06-01 05:38:00 Clau Wheat [facility] DIFFERENTIAL ESTIMATED GFR 2022-06-01 05:38:[address] ABDOMEN PELVIS WO 2022-06-01 05:28:48 Clau Wheat [facility] CONTRAST CT HEAD WO CONTRAST 2022-06-01 05:28:40 Clau Wheat [facility] URINE CULTURE 2022-06-01 04:40:00 Clau Wheat spital URINALYSIS SCREEN AND 2022-06-01 04:14:00 Clau Wheat [facility] MICROSCOPY, WITH REFLEX TO CULTURE HC COMPLETE BLD COUNT 2021-06-03 10:37:[address] [facility] W/AUTO DIFF COMPREHENSIVE METABOLIC 2021-06-03 10:37:00 Rogers Han [facility] PANEL ESTIMATED GFR 2021-06-03 10:37:00 [facility] FL PYELOGRAM RETROGRADE 2021-06-02 20:01:50 Rogers Han [facility] MI AN ELECTIVE 2021-06-02 19:28:45 Aileen Sheriff [facility] SUPRAGLOTTIC AIRWAY CYSTO, URETEROSCOPY 2021-06-02 19:02:[address] [facility] LACT[facility]ID LEVEL, SEPSIS 2021-06-02 11:45:00 [facility] - NOW AND REPEAT 2X EVERY 3 HOURS COVID-19 QUALITATIVE 2021-06-02 08:37:00 Ben Shelley [facility] RT-PCR LACTIC ACID LEVEL, SEPSIS 2021-06-02 07:38:00 [facility] - NOW AND REPEAT 2X EVERY 3 HOURS URINE CULTURE 2021-06-02 06:05:00 Ben Shelley [facility] URINALYSIS SCREEN AND 2021-06-02 05:48:00 Ben Shelley [facility] MICROSCOPY, WITH REFLEX TO CULTURE HCG QUALITATIVE, URINE 2021-06-02 05:48:[address] [facility] SCREEN CT RENAL STONE PROTOCOL 2021-06-02 04:29:44 [facility] BLOOD CULTURE, AEROBIC & 2021-06-02 04:05:00 [facility] ANAEROBIC BLOOD CULTURE, AEROBIC & 2021-06-02 03:47:00 [facility] ANAEROBIC LACTIC ACID LEVEL, SEPSIS 2021-06-02 03:47:00 [facility] NOW AND REPEAT 2X EVERY 3 HOURS HC COMPLETE BLD COUNT 2021-06-02 03:21:00 Ben Shelley [facility] W/AUTO DIFF COMPREHENSIVE METABOLIC 2021-06-02 03:21:[address] [facility] PANEL LIPASE LEVEL 2021-06-02 03:21:00 [facility] Shel[facility] ESTIMATED GFR 2021-06-02 03:21:00 Sukumar Zafar [facility] MAMMO, screening, digital, 2021-02-17 00:00:00 Safia oralia [facility] ELECTROCARDIOGRAM, 2020-11-03 00:00:00 [facility] Hysterectomy 2002-01-24 00:00:00 [facility] Section [facility] Cholecystectomy [facility] Plan of Care Planned Activity Planned Date Details Comments Source Future Scheduled Test 2023-03-15 BREAST CANCER [facility] 00:49:18 SCREENING [code = BREAST CANCER SCREENING] Future Scheduled Test 2023-03-15 COLONOSCOPY [facility] 00:49:18 SCREENING [code = COLONOSCOPY SCREENING] Future Scheduled Test 2023-03-15 SHINGLES VACCINES (1 [facility] 00:49:18 of 2) [code = SHINGLES VACCINES (1 of 2)] Future Scheduled Test 2023-03-[address] [facility] 00:49:18 [code = INFLUENZA VACCINE] Future Scheduled Test 2023-03-15 COVID-19 VACCINE [facility] 00:49:18 (#1) [code = COVID-19 VACCINE (#1)] Future Scheduled Test 2023-03-15 Hepatitis C [facility] 00:49:18 screening (procedure) [code = 100167156] Future Scheduled Test 2023-03-15 Screening for [facility] 00:49:18 malignant neoplasm of cervix (procedure) [code = 875252346] Future Scheduled Test 2023-01-12 COVID-19 VACCINE [facility] 14:55:47 (#1) [code = COVID-19 VACCINE (#1)] Future Scheduled Test 2023-01-12 Hepatitis C [facility] 14:55:47 screening (procedure) [code = 920219546] Future Scheduled Test 2023-01-12 Screening for [facility] 14:55:47 malignant neoplasm of cervix (procedure) [code = 139953313] Future Scheduled Test 2023-01-12 BREAST CANCER [facility] 14:55:47 SCREENING [code = BREAST CANCER SCREENING] Future Scheduled Test 2023-01-12 COLONOSCOPY [facility] 14:55:47 SCREENING [code = COLONOSCOPY SCREENING] Future Scheduled Test 2023-01-[address] [facility] 14:55:47 [code = INFLUENZA VACCINE] Future Scheduled Test 2023-01-12 SHINGLES VACCINES (1 [facility] 14:55:47 of 2) [code = SHINGLES VACCINES (1 of 2)] Future Scheduled Test 2022-09-28 HEPATITIS B VACCINES [facility] 13:18:29 (1 of 3 - 3-dose series) [code = HEPATITIS B VACCINES (1 of 3 - 3-dose series)] Future Scheduled Test 2022-09-28 COVID-19 VACCINE [facility] 13:18:29 (#1) [code = COVID-19 VACCINE (#1)] Future Scheduled Test 2022-09-28 Hepatitis C [facility] 13:18:29 screening (procedure) [code = [id number]] Future Scheduled Test 2022-09-28 Screening for [facility] 13:18:29 malignant neoplasm of cervix (procedure) [code = 475270170] Future Scheduled Test 2022-09-28 BREAST CANCER [facility] 13:18:29 SCREENING [code = BREAST CANCER SCREENING] Future Scheduled Test 2022-09-28 COLONOSCOPY [facility] 13:18:29 SCREENING [code = COLONOSCOPY SCREENING] Future Scheduled Test 2022-09-[address] [facility] 13:18:29 [code = INFLUENZA VACCINE] Future Scheduled Test 2022-09-28 SHINGLES VACCINES (1 [facility] 13:18:29 of 2) [code = SHINGLES VACCINES (1 of 2)] Future Scheduled Test 2022-09-28 HEPATITIS B VACCINES [facility] 13:18:29 (1 of 3 - 3-dose series) [code = HEPATITIS B VACCINES (1 of 3 - 3-dose series)] Future Scheduled Test 2022-09-28 COVID-19 VACCINE [facility] 13:18:29 (#1) [code = COVID-19 VACCINE (#1)] Future Scheduled Test 2022-09-28 Hepatitis C [facility] 13:18:29 screening (procedure) [code = [id number]] Future Scheduled Test 2022-09-28 Screening for [facility] 13:18:29 malignant neoplasm of cervix (procedure) [code = 173569982] Future Scheduled Test 2022-09-[address] [facility] 13:18:29 SCREENING [code = BREAST CANCER SCREENING] Future Scheduled Test 2022-09-28 COLONOSCOPY Method [facility] 13:18:29 SCREENING [code = COLONOSCOPY SCREENING] Future Scheduled Test 2022-09-28 INFLUENZA VACCINE M [facility] 13:18:29 [code = INFLUENZA VACCINE] Future Scheduled Test 2022-09-28 [facility]IN[facility] 13:18:29 of 2) [code = SHINGLES VACCINES (1 of 2)] Diagnostic Test 2021-02-17 urinalysis, dipstick [facility] Pending 00:00:00 [code = urinalysis, [facility] dipstick] Outreach Progra m Diagnostic Test 2021-02-17 culture, urine [code [facility] Pending 00:00:00 = culture, urine] [facility] Diagnostic Test 2021-02-17 cytology report, [place] Pending 00:00:00 thin prep, smear or [facility] scraping, cervical [facility]reach [facility] or vaginal [code = cytology report, thin prep, smear or scraping, cervical or vaginal] Diagnostic Test 2021-02-17 CMP, serum or plasma [facility] Pending 00:00:00 [code = CMP, serum [facility] or plasma] Outreach [facility] Diagnostic Test 2021-02-17 CBC w/ auto diff [place] Pending 00:00:00 [code = CBC w/ auto [facility] diff] Out[facility] Diagnostic Test 2021-02-17 RPR (rapid plasma [place] Pending 00:00:00 reagin), serum [code [facility] = RPR (rapid plasma Outreach Program reagin), serum] Diagnostic Test 2021-02-17 HBsAg (hepatitis B [place] 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 Pending 00:00:00 surface Ag), EIA, [facility] serum [code = HBsAg Outreach Program (hepatitis B surface Ag), EIA, serum] Diagnostic Test 2021-02-17 HIV 1+2 AB + HIV 1 [place] 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 Pending 00:00:00 p24 Ag, qualitative [facility] immunoassay, serum Outreach Program [code = HIV 1+2 AB + HIV 1 p24 Ag, qualitative immunoassay, serum] Diagnostic Test 2021-02-17 TSH + free T4, serum [place] [facility] Pending 00:00:00 [code = TSH + free [facility] T4, serum] Outreach Chu[facility] m Diagnostic Test 2021-02-17 lipid panel, serum [place] 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 Pending 00:00:00 [code = lipid panel, [facility] serum] Out[facility] Future Scheduled Test COVID-19 VACCINE (1) [facility] [code = COVID-19 VACCINE (1)] Future Scheduled Test Hepatitis C [facility] screening (procedure) [code = 196092224] Future Scheduled Test Screening for [facility] malignant neoplasm of cervix (procedure) [code = 710721651] Future Scheduled Test INFLUENZA VACCINE [facility] [code = INFLUENZA VACCINE] Instructions Urinary Tract [facility] Infection, Adult, Patient Co dical [id number] Instructions Urinary Tract [facility] Infection, Adult, Patient Co dical [id number] Instructions Ureteral Stent [facility] Implantation, Care Patient M edical After Center Encounters Start End Encounter Admission Attending Care Care Encounter Source Date/Time Date/Time Type Type Clinicians Facility Department ID 2022-05-10 Outpatient [facility] [id number] [place] 15:10:00 [id number] Formerly [facility] 2022-02-24 Outpatient [facility] [id number] [place] 15:05:30 [id number] Formerly [facility] 2022-02-22 Outpatient [facility] [id number] [place] 13:32:19 [id number] Formerly [facility] 2023-03-21 2023-03-21 Outpatient TK [facility] 107 [id number] [place] 00:00:00 00:00:00 SSA 94973 da [facility]re[facility] 2023-02-19 2023-02-[address] [facility] [id number] 13:47:00 19:46:00 Inpatient [facility] [id number] [facility] [id number] [address] 2023-02-192023-02-23 Inpatient [facility] [id number] 12:47:00 18:46:00 -[id number] [facility] 2023-01-24 2023-01-24 Outpatient [facility] [id number] 07:16:00 07:16:00 -[id number] [facility] 2022-12-20 2022-12-21 [facility] Hayden Loeg 1.2.840.1 [id number] Methodi 03:23:00 16:56:00 Encounter [place] A [address]779.1.[address] 3.430.2.7 Hospit a .3.354381 l .8 2022-12-20 2022-12-21 [facility] 1.2.840.1 [id number] Methodi 03:23:00 16:56:00 Encounter Kasey Rg A 41175.1.[address] 3.430.2.7 Hospit a .3.236177 l .8 2022-12-20 2022-12-20 Travel 1.2.840.1 1.2.825.279 [id number] Methodi 00:00:00 00:00:[address] 3.430.2.7 0.2.7.3.698 Ho spita .3.295318 084.8 l .8 2022-12-20 2022-12-20 Travel 1.2.840.1 1.2.005.572 1184 [id number] Methodi 00:00:00 00:00:[address] 3.430.2.7 0.2.7.3.698 Ho spita .3.343789 084.8 l .8 2022-11-03 2022-11-03 Outpatient [facility] [id number] 11:05:00 11:05:00 -[id number] [facility] 2022-10-30 2022-10-[address] [id number] [address]. 14:57:00 19:10:00 Emergency [facility] [id number] [facility] Patients [id number] [address] 2022-10-30 2022-10-30 Registered 3 YOSELIN [facility] A [id number] St. 12:38:00 12:38:00 Clinic Patients 44 [facility] 2022-10-30 2022-10-30 Outpatient [facility] [id number] 11:38:00 11:38:00 -[id number] [facility] 2022-10-08 2022-10-08 Departed 1 BANEGAS, [facility]' [id number] 14:12:00 18:00:00 Emergency JULIENNE Patients 63 Zac e's Room [facility] 2022-10-08 2022-10-08 Emergency [facility] [id number] 13:12:00 17:00:00 -[id number] [facility] 2022-09-11 2022-09-11 Registered 3 YOSELIN [facility] A [id number] St. 09:21:00 09:21:00 Clinic Patients 32 [facility] 2022-09-11 2022-09-11 Outpatient [facility] [id number] 08:21:00 08:21:00 -[id number] [facility] 2022-09-05 2022-09-05 Outpatient [id number] 12:45:00 12:45:00 3 2022-09-01 2022-09-01 Outpatient [id number] 12:45:00 12:45:00 3 2022-08-31 2022-08-31 Outpatient [id number] 11:00:00 11:00:00 3 2022-07-18 2022-07-20 [facility] Arben Dooleylevon Solis 1.2.840.1 [id number] Methodi 15:19:00 20:45:00 Encounter Reji Roque 92660.1.[address] Ninoa, Kallie 3.430.2.7 Hos igor .3.610168 l .8 2022-07-18 2022-07-20 [facility] Arben Dooleylevon Solis 1.2.840.1 [id number] Methodi 15:19:00 20:45:00 Encounter Reji Roque 56591.1.[address] Raja, Kallie 3.430.2.7 Hos igor .3.616627 l .8 2022-07-18 2022-07-18 Travel 1.2.840.1 1.2.789.235 0202 [id number] Methodi 00:00:00 00:00:[address] 3.430.2.7 0.2.7.3.698 Ho spita .3.326913 084.8 l .8 2022-07-18 2022-07-18 Travel 1.2.840.1 1.2.051.872 9557 [id number] Methodi 00:00:00 00:00:[address] 3.430.2.7 0.2.7.3.698 Ho spita .3.016242 084.8 l .8 2022-06-25 2022-06-28 [facility] Lexii Valeria 1.2.840.1 10 [id number] Methodi 22:44:00 12:21:00 Encounter Julio Sotner Amod 63705.1.1 709 [facility] 3.430.2.7 Hospita .3.360179 l .8 2022-06-25 2022-06-28 [facility] 1.2.840.1 10 [id number] Methodi 22:44:00 12:21:00 Encounter Julio Stoner Amod 72012.1.[address] Joreg Baker I 3.430.2.7 Hospita .3.153210 l .8 2022-06-21 2022-06-23 [facility] Ben Shelley 1.2.840.1 104 [id number] Methodi 01:00:00 19:34:00 Encounter Elif Roberts Delarosa 61256.1.[address] [facility] 3.4 30.2.7 Hospita .3.615543 l .8 2022-06-21 2022-06-23 [facility] Ben Shelley 1.2.840.1 104 [id number] Methodi 01:00:00 19:34:00 Encounter Elif Roberts Delarosa 33960.1.[address] [facility] Mohamed A 3.4 30.2.7 Hospita .3.413061 l .8 2022-06-22 2022-06-22 Prep for Kannady, 1.2.840.1 [id number] 2100 [id number] Methodi 00:00:00 00:00:00 Surgery Christopher 24002.1.[address] 3.430.2.7 Hospit a .3.796586 l .8 2022-06-22 2022-06-22 Prep for Kannady, 1.2.840.1 [id number] [id number] Methodi 00:00:00 00:00:00 Surgery Christopher 55031.1.[address] 3.430.2.7 Hospit a .3.937359 l .8 2022-05-31 2022-06-02 [facility] Clau Wheat R 1.2.840.1 [id number] Methodi 23:35:00 20:40:00 Encounter Harshil Guzman 89883.1.[address] Julio Stoner Amod 3.430.2.7 Hospita BakerJanel mcginnis Lb .3.714781 l .8 2022-05-31 2022-06-02 [facility] Clau Wheat 1.2.840.1 [id number] Methodi 23:35:00 20:40:00 Encounter Harshil Guzman 65713.1.[address] [facility] Amod 3.430.2.7 Hospita Janel Bakerl .3.151283 l .8 2022-06-02 2022-06-02 Anesthesia Keyla Anthony 1.2.840.1 10 [id number] Methodi 08:29:00 09:36:00 Event Karsten Kennedy 00272.1.[address] 3.430.2.7 Hospit a .3.869701 l .8 2022-06-02 2022-06-02 Anesthesia Keyla Anthony 1.2.840.1 10 [id number] Methodi 08:29:00 09:36:00 Event Karsten Kennedy 57803.1.[address] 3.430.2.7 Hospit a .3.162315 l .8 2022-06-02 2022-06-02 Surgery Emely Rogers 1.2.840.1 [id number] 2100 [id number] Methodi 08:25:00 09:30:[address] 3.430.2.7 Hospit a .3.929064 l .8 2022-06-02 2022-06-02 Surgery Emely Rogers 1.2.840.1 [id number] 2099 [id number] Methodi 08:25:00 09:30:[address] 3.430.2.7 Hospit a .3.269932 l .8 2022-06-01 2022-06-01 Travel 1.2.840.1 1.2.652.357 2256 [id number] Methodi 00:00:00 00:00:[address] 3.430.2.7 0.2.7.3.698 Ho spita .3.889390 084.8 l .8 2022-06-01 2022-06-01 Travel 1.2.840.1 1.2.031.826 7699 [id number] Methodi 00:00:00 00:00:[address] 3.430.2.7 0.2.7.3.698 Ho spita .3.013146 084.8 l .8 2021-06-04 2021-06-04 Orders Roque, 1.2.840.1 [id number] [id number] Methodi 00:00:00 00:00:00 Only Reji 49379.1.[address] Evangelist 3.430.2.7 Hospit a .3.093941 l .8 2021-06-01 2021-06-03 Hospital Ben Shelley 1.2.840.1 104 [id number] Methodi 22:19:00 18:38:00 Encounter Harshil Guzman 53364.1.[address] RoqueReji 3.430.2.7 [facility] Amod .3.782087 l .8 2021-06-02 2021-06-02 Anesthesia Jethro Angulo 1.2.840. 1 [id number] Methodi 14:11:00 14:58:00 Event Jaden Martinez 15693.1.[address] 3.430.2.7 Hospit a .3.857149 l .8 2021-06-02 2021-06-02 Surgery Rogers Han 1.2.840.1 [id number] 2100 [id number] Methodi 12:50:00 13:56:[address] 3.430.2.7 Hospit a .3.947398 l .8 2021-04-01 2021-04-01 Outpatient Obisesan_ad [facility] 107 [id number] [place] 04:16:00 04:16:00 ekunbi 84484 [facility] 2021-02-17 2021-02-17 Outpatient Obisesan_ad [facility] 107 [id number] [place] 05:32:00 05:32:00 ekunbi 02166 [facility] 2021-02-17 2021-02-17 Kellie [facility] [place] - [id number] [place] 00:00:00 00:00:00 Crystal Costa, Sikhism Ep[facility] p FERRYBOAT HELPER: [address], 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 2021-01-24 2021-01-24 Outpatient Obisesan_ad ME[facility]OP [facility] 107 [id number] [place] 03:58:00 03:58:00 ekunbi 43517 [facility] 2021-01-17 2021-01-17 Outpatient Obisesan_ad [facility]OP [facility] 107 [id number] [place] 11:54:00 11:54:00 ekunbi 41396 [facility] 2020-12-30 2020-12-30 Outpatient Obisesan_ad [facility] 107 [id number] [place] 03:04:00 03:04:00 ekunbi 99065 [facility] 2020-12-02 2020-12-02 Outpatient [facility] [id number]- [place] 04:18:00 04:18:00 [id number] [facility] 2020-12-02 2020-12-02 Adekunbi [facility] [place] - [id number] [place] 00:00:00 00:00:00 Alma Palacio 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 - [facility] al [place], [facility] [address] h , Ph. Program 2020-11-30 2020-11-30 Outpatient [facility]OP [facility] [id number]- [place] 10:55:00 10:55:00 92403 [facility] 2020-11-05 2020-11-05 Outpatient [facility]OP [facility] [id number] 202 [place] 12:42:00 12:42:00 72927 [facility] 2020-11-03 2020-11-03 Outpatient MEHOP ME[facility]OP [facility] [id number]- 202 [place] 05:30:00 05:30:00 [id number] [facility] 2020-11-03 2020-11-03 Drake [facility] [place] - [id number] [place] 00:00:00 00:00:00 Alma Palacio 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 [place] Outreac [address] h , Ph. 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 - [facility] [address] [place] [facility] [phone] , Ph. 2020-11-01 2020-11-01 Outpatient [facility] [id number] [place] 06:41:00 06:41:00 [id number] [facility] 2020-10-29 2020-10-29 Outpatient [facility] [id number] [place] 05:12:00 05:12:00 [id number] [facility] 2020-08-18 2020-08-18 Outpatient Hawkins_M MMG MMG [id number] [place] 01:23:00 01:23:00 0923 da [facility] 2020-03-11 2020-03-11 Outpatient [facility] KY[facility]OP [facility] [id number]- 202 [place] 10:49:00 10:49:00 [id number] [facility] 2019-12-10 2019-12-10 Outpatient KY[facility] [id number]- 202 [place] 11:01:00 11:01:00 14469 [facility] Results Test Description Test Time Test Comments Results Result Comments Source Blood leukocytes automated count (number/volume) 2023-02-23 06:39:00 Test Item Value Reference Range Interpretation Comme nts White Blood Count (test code = 6690-2) 4.46 4.8-10.8 [facility] count (number/volume)2023-02-23 06:39:00 Test Item Value Reference Range Interpretation Comments Red Blood Count (test code = 789-8) 2.97 3.6-5.1 [facility] measurement (moles/volume) 2023-02-23 06:39:00 Test Item Value Reference Range Interpretation Comments Hemoglobin (test code = 54031-4) 8.4 12.0-16.0 [facility] blood hematocrit (volume fraction) 2023-02-23 06:39:00 Test Item Value Reference Range Interpretation Comments Hematocrit (test code = 4544-3) 27.1 34.2-44.1 [facility] erythrocyte mean corpuscular volume 2023-02-23 06:39:00 Test Item Value Reference Range Interpretation Comments Mean Corpuscular Volume (test code = 91.2 81-99 787-2) [facility] mean corpuscular hemoglobin (mass per erythrocyte)2023-02-23 06:39:00 Test Item Value Reference Range Interpretation Comments Mean Corpuscular Hemoglobin (test code 28.3 28-32 = 785-6) [facility] erythrocyte mean corpuscular hemoglobin concentration measurement (mass/volume)2023-02-23 06:39:00 Test Item Value Reference Range Interpretation Comments Mean Corpuscular Hemoglobin Concent 31.0 31-35 (test code = 786-4) [facility]iscoRDW KyvGq-Xui0779-28-31 06:39:00 Test Item Value Reference Range Interpretation Comments Red Cell Distribution Width (test code 12.9 11.7-14.4 = 41823-3) [facility] blood platelet count (count/volume) 2023-02-23 06:39:00 Test Item Value Reference Range Interpretation Comments Platelet Count (test code = 777-3) 383 140360 [facility] blood segmented neutrophil count as percentage of total fwsaodynhs6160-72-84 06:39:00 Test Item Value Reference Range Interpretation Comments Neutrophils (%) (Auto) (test code = 57.0 38.7-80.0 85077-5) [facility] blood lymphocyte count as percentage ot total wyxfdjfszs1950-52-92 06:39:00 Test Item Value Reference Range Interpretation Comments Lymphocytes (%) (Auto) (test code = 26.9 18.0-39.1 736-9) [facility] blood monocyte count as percentage of total jofeexvrju3965-49-17 06:39:00 Test Item Value Reference Range Interpretation Comments Monocytes (%) (Auto) (test code = 12.8 4.4-11.3 5905-5) [facility]isco[facility] blood eosinophil count as percentage of total nvseaiuhvs9030-50-49 06:39:00 Test Item Value Reference Range Interpretation Comments Eosinophils (%) (Auto) (test code = 2.7 0.0-6.0 713-8) [facility]isco[facility] blood basophil count as percentage of total uzdyxywvkr9707-66-83 06:39:00 Test Item Value Reference Range Interpretation Comments Basophils (%) (Auto) (test code = 0.2 0.0-1.0 706-2) [facility]iscoFluoroscopic procedure less than one hour oprrhzzm5935-92-44 06:39:00 Test Item Value Reference Range Interpretation Comments IM GRANULOCYTES % (test code = IM 0.4 0.0-1.0 GRANULOCYTES %) [facility] blood neutrophil katri3183-38-39 06:39:00 Test Item Value Reference Range Interpretation Comments Neutrophils # (Auto) (test code = 2.5 2.1-6.9 751-8) [facility] lymphocytes count (number/volume) 2023-02-23 06:39:00 Test Item Value Reference Range Interpretation Comments Lymphocytes # (Auto) (test code = 1.2 1.0-3.2 64897-2) [facility] monocytes automated count (number/volume)2023-02-23 06:39:00 Test Item Value Reference Range Interpretation Comments Monocytes # (Auto) (test code = 742-7) 0.6 0.2-0.8 [facility]isco[facility] blood eosinophil zhuxb0855-20-10 06:39:00 Test Item Value Reference Range Interpretation Comments Eosinophils # (Auto) (test code = 0.1 0.0-0.4 711-2) [facility]isco[facility] blood basophil count (count/volume) 2023-02-23 06:39:00 Test Item Value Reference Range Interpretation Comments Basophils # (Auto) (test code = 704-7) 0.0 0.0-0.1 [facility]iscoFluoroscopic procedure less than one hour xjrnyrgc3908-55-40 06:39:00 Test Item Value Reference Range Interpretation Comments Absolute Immature Granulocyte (auto 0.02 0-0.1 (test code = Absolute Immature Granulocyte (auto) [facility] plasma sodium measurement (moles/volume)2023-02-23 06:39:00 Test Item Value Reference Range Interpretation Comments Sodium Level (test code = 2951-2) 140 136-145 [facility] Mounderum or plasma potassium measurement (moles/volume)2023-02-23 06:39:00 Test Item Value Reference Range Interpretation Comments Potassium Level (test code = 2823-3) 3.7 3.5-5.1 [facility] Mounderum or plasma chloride measurement (moles/volume)2023-02-23 06:39:00 Test Item Value Reference Range Interpretation Comments Chloride Level (test code = 2075-0) 106 98-107 [facility] Mounderum or plasma carbon dioxide, total measurement (moles/volume)2023-02-23 06:39:00 Test Item Value Reference Range Interpretation Comments Carbon Dioxide Level (test code = 26 22-29 2027-9) [facility] Mounderum or plasma anion dzy1697-32-07 06:39:00 Test Item Value Reference Range Interpretation Comments Anion Gap (test code = 35163-7) 11.7 8-16 [facility] Mounderum or plasma urea nitrogen measurement (mass/volume)2023-02-23 06:39:00 Test Item Value Reference Range Interpretation Comments Blood Urea Nitrogen (test code = 06-20 3094-0) [facility] Mounderum or plasma creatinine measurement (mass/volume)2023-02-23 06:39:00 Test Item Value Reference Range Interpretation Comments Creatinine (test code = 2160-0) 0.81 0.57-1.11 [facility] Mounderum or plasma urea nitrogen/creatinine mass cyydp4447-95-61 06:39:00 Test Item Value Reference Range Interpretation Comments BUN/Creatinine Ratio (test code = 05-20 3097-3) [facility] FriscoGlomerular filtration rate/1.73 sq M.predicted [Volume Rate/Area] in Serum, Plasma or Blood by Creatinine-based formula (CKD-EPI 2020)2023-02-23 06:39:00 Test Item Value Reference Range Interpretation Comments Estimated GFR (CKD-EPI) (test code = 88 >=60 07661-9) [facility] FriscoGlucose fdyaesutjmq2694-31-29 06:39:00 Test Item Value Reference Range Interpretation Comments Glucose Level (test code = SCG1417) 100 74-118 [facility]ounder[facility] or plasma calcium measurement (mass/volume)2023-02-23 06:39:00 Test Item Value Reference Range Interpretation Comments Calcium Level (test code = 28791-5) 9.3 8.4-10.2 [facility] Mounderum or plasma total bilirubin measurement (mass/volume)2023-02-23 06:39:00 Test Item Value Reference Range Interpretation Comments Total Bilirubin (test code = 1975-2) 0.1 0.2-1.2 [facility]iscoFluoroscopic procedure less than one hour cqwvxeqc7321-38-96 06:39:00 Test Item Value Reference Range Interpretation Comments Aspartate Amino Transf (AST/SGOT) (test 12 5-34 code = Aspartate Amino Transf (AST/SGOT)) [facility] Mounderum or plasma alanine aminotransferase measurement (enzymatic activity/volume)2023-02-23 06:39:00 Test Item Value Reference Range Interpretation Comments Alanine Aminotransferase (ALT/SGPT) 13 0-55 (test code = 1742-6) [facility] Mounderum or plasma protein measurement (mass/volume)2023-02-23 06:39:00 Test Item Value Reference Range Interpretation Comments Total Protein (test code = 2885-2) 6.4 6.5-8.1 [facility]ounderum or plasma albumin measurement (mass/volume)2023-02-23 06:39:00 Test Item Value Reference Range Interpretation Comments Albumin (test code = 1751-7) 2.4 3.5-5.0 [facility]iscoPlasma globulin measurement (mass/volume) 2023-02-23 06:39:00 Test Item Value Reference Range Interpretation Comments Globulin (test code = 27631-0) 4.0 2.3-3.5 [facility] Mounderum or plasma albumin/globulin mass ratio 2023-02-23 06:39:00 Test Item Value Reference Range Interpretation Comments Albumin/Globulin Ratio (test code = 0.6 0.8-2.0 1759-0) [facility]ounderum or plasma alkaline phosphatase measurement (enzymatic activity/volume)2023-02-23 06:39:00 Test Item Value Reference Range Interpretation Comments Alkaline Phosphatase (test code = 107 40-150 6768-6) [facility]ounder[facility] or plasma iron measurement (mass/volume)2023-02-22 06:20:00 Test Item Value Reference Range Interpretation Comments Iron Level (test code = 2498-4) 39 50-170 [facility] Mounderum or plasma iron binding capacity measurement (mass/volume)2023-02-22 06:20:00 Test Item Value Reference Range Interpretation Comments Total Iron Binding Capacity (test code 251 138-354 = 2500-7) [facility]ounderum or plasma iron saturation measurement (mass fraction)2023-02-22 06:20:00 Test Item Value Reference Range Interpretation Comments Percent Iron Saturation (test code = 16 15-50 2502-3) [facility] Mounderum or plasma transferrin measurement (mass/volume)2023-02-22 06:20:00 Test Item Value Reference Range Interpretation Comments Transferrin (test code = 3034-6) 179 180-382 [facility]ounderum or plasma ferritin measurement (mass/volume)2023-02-22 06:20:00 Test Item Value Reference Range Interpretation Comments Ferritin (test code = 2276-4) 220.87 4.63-204.00 [facility] SC[facility] W/LXTFU5367-79-15 20:06:00 [facility] : 1970 Sex: F [place] [address] Patient Name: SANGEETHA GARZA MR #: [id number] : 1970 Age/Sex: 52/F Req #: [id number] [facility] Physician: TARA SEVERINO MD Ordered by: MIO WYATT MD Report #: [id number] Location: MED/SURG Room/Bed: [facility] Report: Diagnostic Imaging Report Status: Signed Procedure: [id number] NM/RENAL SCAN W/LASIX Exam Date: 02/20/23 Exam Time: 1521 PROCEDURE: Functional RENAL SCAN with DiureticStimulation CPT CODE: 25818 INDICATION: Bilateral hydronephrosis PROTOCOL: 10 mCi of Tc-99m MAG3 wasinjected intravenously. Renal flow images were obtained inthe posterior projection, subsequent serial posterior images were obtained over 40 minutes. 40 mg of furosemide was injected intravenously, 20 minutes after tracer injection. FINDINGS: There is mildly decreased perfusion of both kidneys, left slightly worse than right. Initial renal activity is divided 48% to the left kidney and 52% to the right kidney. Subsequent images show prompt tracer appearance in the calyces and renal pelves. Followingdiuretic injection, there is progressive tracer washout from the renal collecting systems. Half-emptying times were 25 minutes past peak activity on the left and 46 minutes on the right. IMPRESSION: 1.Compared to the most recent previous study of 10/30/2022, renal function is worse bilaterally. 2. Response to diuretic stimulation is similarly worse bilaterally (specifically left/right half-emptying times were nine and 28 minutes respectively on the previous study versus 25 and 46 minutes today. The overall pattern of clearance is similar in the right upper pole now but worse in the right lower poleand in the left kidney generally. 3. The perfusion and washout patterns suggest a combination of renal parenchymal dysfunction, now mildly worse, and functional ureteral obstruction, now also includingthe left kidney (previously only the right). Signed by: Francisco Che on 02/20/2023 8:06 PM Dictated By: Francisco Che MD 07 Transcribed By: Haylee 02/20/232005 COPY TO: MIO WYATT [facility] specimen severe acute respiratory syndrome- related coronavirus antigen detection by lvmdiputoaq5751-34-61 14:46:00 Test Item Value Reference Range Interpretation Comments SARS-CoV-2 Antigen (test code = NOT DETECTED NEGATIVE 91169-4) [facility] color nurukncgwpvwm8343-76-96 14:35:00 Test Item Value Reference Range Interpretation Comments Urine Color (test code = 5778-6) YELLOW YELLOW [facility] spylouj2216-33-35 14:35:00 Test Item Value Reference Range Interpretation Comments Urine Clarity (test code = 00552-6) TURBID CLEAR [facility] Moundpecific gravity of Urine by Test strip 2023-02-19 14:35:00 Test Item Value Reference Range Interpretation Comments Urine Specific [place] (test code = 1.020 1.010-1.025 5811-5) [facility] pH measurement by automated test strip 2023-02-19 14:35:00 Test Item Value Reference Range Interpretation Comments Urine pH (test code = 10082-5) 6.5 5-7 [facility] leukocyte esterase detection by automated test agafa1223-47-31 14:35:00 Test Item Value Reference Range Interpretation Comments Urine Leukocyte Esterase (test code = LARGE NEGATIVE 00219-0) [facility] nitrite detection by automated test pwegp4757-04-83 14:35:00 Test Item Value Reference Range Interpretation Comments Urine Nitrite (test code = 34279-7) POSITIVE NEGATIVE [facility] detection by automated test iljte0793-80-77 14:35:00 Test Item Value Reference Range Interpretation Comments Urine Protein (test code = 28574-6) 2+ NEGATIVE [facility] glucose detection by automated test lyech9762-35-12 14:35:00 Test Item Value Reference Range Interpretation Comments Urine Glucose (UA) (test code = NEGATIVE NEGATIVE 53434-6) [facility] ketones detection by automated test yfkgc5837-90-28 14:35:00 Test Item Value Reference Range Interpretation Comments Urine Ketones (test code = 22837-1) NEGATIVE NEGATIVE [facility] urobilinogen measurement by test strip (mass/volume)2023-02-19 14:35:00 Test Item Value Reference Range Interpretation Comments Urine Urobilinogen (test code = 0.2 0.2-1 09544-8) [facility] total bilirubin yttlpkpvi1574-35-32 14:35:00 Test Item Value Reference Range Interpretation Comments Urine Bilirubin (test code = 1977-8) NEGATIVE NEGATIVE [facility] erythrocytes wkefmgvmt0475-63-61 14:35:00 Test Item Value Reference Range Interpretation Comments Urine Blood (test code = 11623-2) LARGE NEGATIVE [facility]iscoAutom[facility] urine sediment leukocyte count by microscopy (number/high power field)2023-02-19 14:35:00 Test Item Value Reference Range Interpretation Comments Urine WBC (test code = 5821-4) >50 0-5 [facility]iscoErythrocytes detection in urine sediment by light getfhwtmyg2068-94-69 14:35:00 Test Item Value Reference Range Interpretation Comments Urine RBC (test code = 34115-8) >50 0-5 [facility]iscoBacteria detection in urine sediment by light taqshbkhjn2145-38-10 14:35:00 Test Item Value Reference Range Interpretation Comments Urine Bacteria (test code = 38941-6) FEW NONE [facility]iscoEpithelial cells detection in urine sediment by light qjslnhzzyw1473-43-49 14:35:00 Test Item Value Reference Range Interpretation Comments Urine Epithelial Cells (test code = FEW NONE 07967-4) [facility]iscoBacterial urine mwqunuy5884-47-89 14:35:00 Test Item Value Reference Range Interpretation Comments Urine Culture (test PSEUDOMONAS AERUGINOSA code = 630-4) [facility]iscoFluoroscopic procedure less than one hour tvkulbuy7912-56-19 13:41:00 Test Item Value Reference Range Interpretation Comments Lactic Acid Level (test code = Lactic 1.1 0.5-2.0 Acid Level) [facility] or plasma choriogonadotropin ( test) zvxbpixpt2199-89-55 13:41:00 Test Item Value Reference Range Interpretation Comments Human Chorionic Gonadotropin, Qual NEGATIVE NEGATIVE (test code = 2118-8) [facility]Blood cuszxmk8728-99-43 13:41:00 Test Item Value Reference Range Interpretation Comments Blood Culture (test NO GROWTH AFTER 72 code = 90419123) HOURS [facility]iscoCT ABDOMEN/PELVIS [id number] 13:26:00 [facility] : 1970 Sex: F [place] [address] Patient Name: SANGEETHA GARZA MR #: [id number] : 1970 Age/Sex: 52/F Req #: [id number] [facility] Physician: Ordered by: ESEQUIEL ENRIQUEZ PA-C Report #: [id number] Location: ER Room/Bed: Report: Diagnostic Imaging Report Status: Signed Procedure: [id number] CT/CT ABDOMEN/PELVIS WO Exam Date: 02/19/23 Exam Time: 1250 EXAM: CT Abdomen and Pelvis WITHOUT intravenous contrast INDICATION: Bilateral flank pain COMPARISON: CT abdomen pelvis of 10/08/22 TECHNIQUE: Abdomen and pelvis were scanned utilizing a multidetector helical scanner from the lung base to the pubic symphysis without administration of IV contrast. Coronal and sagittal reformationswere obtained. Dose modulation, iterative reconstruction, and/or weight based adjustment of the mA/kV was utilized to reduce the radiation dose to as low as reasonably achievable. IV CONTRAST: None ORAL CONTRAST: Water COMPLICATIONS: None FINDINGS: LOWER THORAX: Normal. HEPATOBILIARY: No focal liver lesions. Status post cholecystectomy. SPLEEN: No splenomegaly. PANCREAS: No focal masses or ductal dilatation. ADRENALS: No adrenal nodules. KIDNEYS/URETERS: Bilateral nephroureteral stents in expected position. Severe bilateral hydronephrosis, worse compared to 10/08/22. No renal or ureteral stones. No suspicious solid or cystic mass. PELVIC ORGANS/BLADDER: Unremarkable. PERITONEUM / RETROPERITONEUM: No free air or fluid. LYMPH NODES: No lymphadenopathy. VESSELS: Moderate atherosclerotic calcifications of the non-aneurysmal abdominal aorta and major branches. GI TRACT: No obstruction or wall thickening. The appendix is not visualized. No inflammatory changes in the right lower quadrant to suggest appendicitis. BONES AND SOFT TISSUES: Unremarkable. IMPRESSION: Worsening severe right greater than left hydronephrosis with bilateral ureteral stents in expected position. Signed by: Florence Lucero on 02/19/2023 1:26 PM Dictated By: FLORENCE LUCERO MD 1329 Transcribed By: GRAZYNA on 02/19/23 1326 COPY TO: ESEQUIEL ENRIQUEZ PA-C SARS-CoV-2 (COVID-19) RNA [Presence] in Respiratory specimen by MAUREEN with probe yjufjnihl1790-87-69 15:59:17 Test Item Value Reference Range Interpretation Comments SARS-CoV-2 (COVID-19) RNA Not detected [Presence] in Respiratory specimen by MAUREEN with probe detection (test code = 92283-1) Whether patient is employed in a Unknown healthcare setting (test code = 94823-6) Whether the patient has symptoms Unknown related to condition of interest (test code = 36527-6) Whether the patient was Unknown hospitalized for condition of interest (test code = 73621-9) Whether the patient was admitted Unknown to intensive care unit (ICU) for condition of interest (test code = 48916-4) Whether patient resides in a Unknown congregate care setting (test code = 77595-7) status (test code = Unknown 83769-3) Date and time of symptom onset Unknown (test code = 09398-8) [address]2022-11-03 13:10:00 [facility] : 1970 Sex: F [place] [address] Patient Name: SANGEETHA GARZA MR #: [id number] : 1970 Age/Sex: 52/F Req #: [id number] Adm Physician: Ordered by: MIO WYATT MD Report #: [id number] Location: OR Room/Bed: -- Report: Diagnostic Imaging Report Status: Signed Procedure: [id number] DX/ABDOMEN- 1VIEW (KUB) Exam Date: 11/03/22 Exam Time: 1221 Exam: ABDOMEN-1VIEW (KUB) Date: 11/03/2022 1:09 PM Indication:Ureteral stents COMPARISON: CT abdomen pelvis 10/08/2022 DISCUSSION/IMPRESSION: Bilateral double-J ureteral stentsin place, pigtails in appropriate positions. No radiographic evidence of renal stone. Right upper drea drant clips in place, consistent with prior cholecystectomy. Nonspecific nonobstructive bowel gas pattern. No evidence of free air within the limitations of this study. Signed by: Zackery Rocha on 11/03/2022 1:10 PM Dictated By: ZACKERY ROCHA MD 11 Transcribed By: GRAZYNA on 11/03/221309 COPY TO: MIO WYATT MDUrine color byxqkujsmradf9382-96-72 16:44:00 Test Item Value Reference Range Interpretation Comments Urine Color (test code = 5778-6) STRAW YELLOW [facility] rpqjfsh0190-25-44 16:44:00 Test Item Value Reference Range Interpretation Comments Urine Clarity (test code = 50475-5) CLEAR CLEAR [facility] gravity of Urine by Test strip 2022-10-30 16:44:00 Test Item Value Reference Range Interpretation Comments Urine Specific [place] (test code = 1.010 1.010-1.025 5811-5) [facility] pH measurement by automated test strip 2022-10-30 16:44:00 Test Item Value Reference Range Interpretation Comments Urine pH (test code = 46707-6) 5 5-7 [facility] leukocyte esterase detection by automated test qoghq7800-17-94 16:44:00 Test Item Value Reference Range Interpretation Comments Urine Leukocyte Esterase (test code MODERATE NEGATIVE = 06418-4) [facility] nitrite detection by automated test gnjuh4122-83-66 16:44:00 Test Item Value Reference Range Interpretation Comments Urine Nitrite (test code = 64425-6) POSITIVE NEGATIVE [facility] protein detection by automated test ainiy7548-26-50 16:44:00 Test Item Value Reference Range Interpretation Comments Urine Protein (test code = 77341-8) TRACE NEGATIVE [facility] glucose detection by automated test scbhz0739-87-00 16:44:00 Test Item Value Reference Range Interpretation Comments Urine Glucose (UA) (test code = NEGATIVE NEGATIVE 51377-4) [facility] ketones detection by automated test qheeu8643-41-15 16:44:00 Test Item Value Reference Range Interpretation Comments Urine Ketones (test code = 80964-1) NEGATIVE NEGATIVE [facility]iscoUrine urobilinogen measurement by test strip (mass/volume)2022-10-30 16:44:00 Test Item Value Reference Range Interpretation Comments Urine Urobilinogen (test code = 0.2 0.2-1 79364-8) [facility] total bilirubin nozpjtpsj8215-43-13 16:44:00 Test Item Value Reference Range Interpretation Comments Urine Bilirubin (test code = 1977-8) NEGATIVE NEGATIVE [facility] erythrocytes lorjqbwmq8262-85-73 16:44:00 Test Item Value Reference Range Interpretation Comments Urine Blood (test code = 93613-0) TRACE NEGATIVE [facility]iscoAutomated urine sediment leukocyte count by microscopy (number/high power field)2022-10-30 16:44:00 Test Item Value Reference Range Interpretation Comments Urine WBC (test code = 5821-4) >50 0-5 [facility]iscoErythrocytes detection in urine sediment by light spbamoefxb6159-75-14 16:44:00 Test Item Value Reference Range Interpretation Comments Urine RBC (test code = 90710-3) 0-5 0-5 [facility]iscoBacteria detection in urine sediment by light smvibhpyky5020-94-62 16:44:00 Test Item Value Reference Range Interpretation Comments Urine Bacteria (test code = 07524-9) MODERATE NONE [facility]iscoEpithelial cells detection in urine sediment by light oycerfqznt5369-94-70 16:44:00 Test Item Value Reference Range Interpretation Comments Urine Epithelial Cells (test code = MODERATE NONE 08926-7) [facility]iscoHyaline casts detection in urine sediment by light btjhruhavh4682 16:44:00 Test Item Value Reference Range Interpretation Comments Urine Hyaline Casts (test code = 2-5 0-1 16820-2) [facility]iscoBlood leukocytes automated count (number/volume)2022-10-30 16:39:00 Test Item Value Reference Range Interpretation Comments White Blood Count (test code = 6690-2) 6.41 4.8-10.8 [facility]Blood erythrocytes automated count (number/volume)2022-10-30 16:39:00 Test Item Value Reference Range Interpretation Comments Red Blood Count (test code = 789-8) 3.97 3.6-5.1 [facility]Blood hemoglobin measurement (moles/volume) 2022-10-30 16:39:00 Test Item Value Reference Range Interpretation Comments Hemoglobin (test code = 87051-7) 11.3 12.0-16.0 [facility]iscoAutomated blood hematocrit (volume fraction) 2022-10-30 16:39:00 Test Item Value Reference Range Interpretation Comments Hematocrit (test code = 4544-3) 36.5 34.2-44.1 [facility]iscoAutomated erythrocyte mean corpuscular volume 2022-10-30 16:39:00 Test Item Value Reference Range Interpretation Comments Mean Corpuscular Volume (test code = 91.9 81-99 787-2) [facility]iscoAutom[facility] erythrocyte mean corpuscular hemoglobin (mass per erythrocyte)2022-10-30 16:39:00 Test Item Value Reference Range Interpretation Comments Mean Corpuscular Hemoglobin (test code 28.5 28-32 = 785-6) [facility]iscoAutomated erythrocyte mean corpuscular hemoglobin concentration measurement (mass/volume)2022-10-30 16:39:00 Test Item Value Reference Range Interpretation Comments Mean Corpuscular Hemoglobin Concent 31.0 31-35 (test code = 786-4) [facility]iscoRDW OywUl-Geq2771-00-05 16:39:00 Test Item Value Reference Range Interpretation Comments Red Cell Distribution Width (test code 12.6 11.7-14.4 = 54465-1) [facility]iscoAutomated blood platelet count (count/volume) 2022-10-30 16:39:00 Test Item Value Reference Range Interpretation Comments Platelet Count (test code = 777-3) 448 140-360 [facility]iscoAutformerly [facility] hospitaled blood segmented neutrophil count as percentage of total bmtsamjack8315-83-73 16:39:00 Test Item Value Reference Range Interpretation Comments Neutrophils (%) (Auto) (test code = 73.8 38.7-80.0 44249-2) [facility]iscoAutomated blood lymphocyte count as percentage ot total kqjjtimvmm9648-73-73 16:39:00 Test Item Value Reference Range Interpretation Comments Lymphocytes (%) (Auto) (test code = 16.2 18.0-39.1 736-9) [facility]iscoAutomated blood monocyte count as percentage of total abieuuzzex9508-18-88 16:39:00 Test Item Value Reference Range Interpretation Comments Monocytes (%) (Auto) (test code = 8.7 4.4-11.3 5905-5) [facility]iscoAutomated blood eosinophil count as percentage of total yjkxjukwpe3341-59-65 16:39:00 Test Item Value Reference Range Interpretation Comments Eosinophils (%) (Auto) (test code = 0.8 0.0-6.0 713-8) [facility]iscoAutomated blood basophil count as percentage of total vkhehrbovl8721-47-12 16:39:00 Test Item Value Reference Range Interpretation Comments Basophils (%) (Auto) (test code = 0.2 0.0-1.0 706-2) [facility]iscoFluoroscopic procedure less than one hour nilvqkqh0765-24-52 16:39:00 Test Item Value Reference Range Interpretation Comments IM GRANULOCYTES % (test code = IM 0.3 0.0-1.0 GRANULOCYTES %) [facility]iscoAutomated blood neutrophil osllm8432-46-19 16:39:00 Test Item Value Reference Range Interpretation Comments Neutrophils # (Auto) (test code = 4.7 2.1-6.9 751-8) [facility]iscoBlood lymphocytes count (number/volume) 2022-10-30 16:39:00 Test Item Value Reference Range Interpretation Comments Lymphocytes # (Auto) (test code = 1.0 1.0-3.2 42843-4) [facility]iscoBlood monocytes automated count (number/volume)2022-10-30 16:39:00 Test Item Value Reference Range Interpretation Comments Monocytes # (Auto) (test code = 742-7) 0.6 0.2-0.8 [facility]iscoAutomated blood eosinophil kjasr8760-40-18 16:39:00 Test Item Value Reference Range Interpretation Comments Eosinophils # (Auto) (test code = 0.1 0.0-0.4 711-2) [facility]iscoAutomated blood basophil count (count/volume) 2022-10-30 16:39:00 Test Item Value Reference Range Interpretation Comments Basophils # (Auto) (test code = 704-7) 0.0 0.0-0.1 [facility]iscoFluoroscopic procedure less than one hour awmvvhsw3219-03-06 16:39:00 Test Item Value Reference Range Interpretation Comments Absolute Immature Granulocyte (auto 0.02 0-0.1 (test code = Absolute Immature Granulocyte (auto) [facility] or plasma sodium measurement (moles/volume)2022-10-30 16:39:00 Test Item Value Reference Range Interpretation Comments Sodium Level (test code = 2951-2) 140 136-145 [facility]ounder[facility] or plasma potassium measurement (moles/volume)2022-10-30 16:39:00 Test Item Value Reference Range Interpretation Comments Potassium Level (test code = 2823-3) 3.5 3.5-5.1 [facility] or plasma chloride measurement (moles/volume)2022-10-30 16:39:00 Test Item Value Reference Range Interpretation Comments Chloride Level (test code = 2075-0) 96 98-107 [facility]ounderum or plasma carbon dioxide, total measurement (moles/volume)2022-10-30 16:39:00 Test Item Value Reference Range Interpretation Comments Carbon Dioxide Level (test code = 28 22-29 2027-9) [facility] or plasma anion top8686-56-48 16:39:00 Test Item Value Reference Range Interpretation Comments Anion Gap (test code = 80704-3) 19.5 8-16 [facility] or plasma urea nitrogen measurement (mass/volume)2022-10-30 16:39:00 Test Item Value Reference Range Interpretation Comments Blood Urea Nitrogen (test code = 12 06-20 3094-0) [facility] or plasma creatinine measurement (mass/volume)2022-10-30 16:39:00 Test Item Value Reference Range Interpretation Comments Creatinine (test code = 2160-0) 0.84 0.57-1.11 [facility] or plasma urea nitrogen/creatinine mass agpzu5710-80-21 16:39:00 Test Item Value Reference Range Interpretation Comments BUN/Creatinine Ratio (test code = 05-20 3097-3) [facility] FriscoGlomerular filtration rate/1.73 sq M.predicted [Volume Rate/Area] in Serum, Plasma or Blood by Creatinine-based formula (CKD-EPI 2020)2022-10-30 16:39:00 Test Item Value Reference Range Interpretation Comments Estimated GFR (CKD-EPI) 85 See_Comment [Au tomated message] The (test code = 13527-8) system which generated this result tra nsmitted reference range : >=60. The reference r lado was not used to int erpret this result as normal/abnormal . [facility]iscoGlucose tmxqlzghgrn8136-28-83 16:39:00 Test Item Value Reference Range Interpretation Comments Glucose Level (test code = ETZ0688) 117 74-118 [facility] or plasma calcium measurement (mass/volume)2022-10-30 16:39:00 Test Item Value Reference Range Interpretation Comments Calcium Level (test code = 03781-2) 10.2 8.4-10.2 [facility] or plasma total bilirubin measurement (mass/volume)2022-10-30 16:39:00 Test Item Value Reference Range Interpretation Comments Total Bilirubin (test code = 1975-2) 0.5 0.2-1.2 [facility]iscoFluoroscopic procedure less than one hour yesilodq1585-69-33 16:39:00 Test Item Value Reference Range Interpretation Comments Aspartate Amino Transf (AST/SGOT) (test 13 5-34 code = Aspartate Amino Transf (AST/SGOT)) [facility] or plasma alanine aminotransferase measurement (enzymatic activity/volume)2022-10-30 16:39:00 Test Item Value Reference Range Interpretation Comments Alanine Aminotransferase (ALT/SGPT) 15 0-55 (test code = 1742-6) [facility] or plasma protein measurement (mass/volume)2022-10-30 16:39:00 Test Item Value Reference Range Interpretation Comments Total Protein (test code = 2885-2) 9.1 6.5-8.1 [facility] or plasma albumin measurement (mass/volume)2022-10-30 16:39:00 Test Item Value Reference Range Interpretation Comments Albumin (test code = 1751-7) 3.8 3.5-5.0 [facility]iscoPlasma globulin measurement (mass/volume) 2022-10-30 16:39:00 Test Item Value Reference Range Interpretation Comments Globulin (test code = 26172-7) 5.3 2.3-3.5 [facility] or plasma albumin/globulin mass ratio 2022-10-30 16:39:00 Test Item Value Reference Range Interpretation Comments Albumin/Globulin Ratio (test code = 0.7 0.8-2.0 1759-0) [facility] or plasma alkaline phosphatase measurement (enzymatic activity/volume)2022-10-30 16:39:00 Test Item Value Reference Range Interpretation Comments Alkaline Phosphatase (test code = 120 40-150 6768-6) [facility]iscoRENAL SCAN W/EDAUQ6674-56-65 15:56:00 [facility] : 1970 Sex: F [place] [address] Patient Name: SANGEETHA GARZA MR #: [id number] : 1970 Age/Sex: 52/F Req#: [id number] Adm Physician: Ordered by: MIO WYATT MD Report #: [id number] Location: [place] Room/Bed: Report: Diagnostic Imaging Report Status: Signed Procedure: [id number] NM/RENAL SCAN W/LASIX Exam Date: 10/30/22 Exam Time: 1220 PROCEDURE: Functional RENAL SCAN with Diuretic Stimulation CPT CODE: 72413 INDICATION: 52-year-old female, hydronephrosis TECHNIQUE: 10 mCi of Tc-99m MAG3 was injected intravenously. Renal flow images were obtained in theposterior projection, subsequent serial posterior images were obtained over 40 minutes. 40 mg of furosemide was injected intravenously, 20 minutes after tracer injection. FINDINGS: There is prompt and symmetric perfusion of the kidneys. Initial renal activity is divided 48.4% to the left kidney and 51.6% to the right kidney. Subsequent images show prompttracer appearance in the calyces and renal pelves. There is normal clearance from the left kidney prior to Lasix administration. The right kidney demonstrates relatively sluggish clearance which does not change after Lasix administration. On the post void images there is more than expected activity within the right collecting system, most prominent within its upper aspect. IMPRESSION: Constellation of findings suggestive of a low-grade obstruction within the right collecting system. Signed by: Vivek Aaron on 10/30/2022 3:56 PM Dictated By: Vivek Aaron MD [id number] Transcribed By: GRAZYNA on 10/30/22 9220 COPY TO: MIO WYATTeriaanjana urine culture 2022-10-08 16:54:00 Test Item Value Reference Range Interpretation Comments Urine Culture (test KLEBSIELLA PNEUMONIAE code = 630-4) [facility]rine color ffxazfdlrpzlg0787-51-26 16:54:00 Test Item Value Reference Range Interpretation Comments Urine Color (test code = 5778-6) YELLOW YELLOW [facility]iscoUrine uqxjpjw6919-19-34 16:54:00 Test Item Value Reference Range Interpretation Comments Urine Clarity (test code = 07792-4) CLOUDY CLEAR [facility]oundpecific gravity of Urine by Test strip 2022-10-08 16:54:00 Test Item Value Reference Range Interpretation Comments Urine Specific [place] (test code = 1.015 1.010-1.025 5811-5) [facility]iscoUrine pH measurement by automated test strip 2022-10-08 16:54:00 Test Item Value Reference Range Interpretation Comments Urine pH (test code = 13925-7) 6 5-7 [facility]iscoU[facility] leukocyte esterase detection by automated test cdfnn4342-21-44 16:54:00 Test Item Value Reference Range Interpretation Comments Urine Leukocyte Esterase (test code = SMALL NEGATIVE 36892-3) [facility]iscoUrine nitrite detection by automated test reyfp9249-86-08 16:54:00 Test Item Value Reference Range Interpretation Comments Urine Nitrite (test code = 94159-9) POSITIVE NEGATIVE [facility]iscoU[facility] protein detection by automated test pjzyp0809-22-10 16:54:00 Test Item Value Reference Range Interpretation Comments Urine Protein (test code = 57543-5) 2+ NEGATIVE [facility]isco[facility] glucose detection by automated test jimlh4724-78-74 16:54:00 Test Item Value Reference Range Interpretation Comments Urine Glucose (UA) (test code = NEGATIVE NEGATIVE 84047-7) [facility]isco[facility] ketones detection by automated test ehlot8676-96-11 16:54:00 Test Item Value Reference Range Interpretation Comments Urine Ketones (test code = 72574-8) 2+ NEGATIVE [facility]iscoUrine urobilinogen measurement by test strip (mass/volume)2022-10-08 16:54:00 Test Item Value Reference Range Interpretation Comments Urine Urobilinogen (test code = 0.2 0.2-1 21775-1) [facility]isco[facility] total bilirubin bmsqwnoes4466-73-12 16:54:00 Test Item Value Reference Range Interpretation Comments Urine Bilirubin (test code = 1977-8) NEGATIVE NEGATIVE [facility]iscoUrine erythrocytes jkiuqkbmm4914-95-03 16:54:00 Test Item Value Reference Range Interpretation Comments Urine Blood (test code = 43417-4) MODERATE NEGATIVE [facility]iscoAutomated urine sediment leukocyte count by microscopy (number/high power field)2022-10-08 16:54:00 Test Item Value Reference Range Interpretation Comments Urine WBC (test code = 5821-4) >50 0-5 [facility]iscoErythrocytes detection in urine sediment by light gtsoeyvlsq7517-98-94 16:54:00 Test Item Value Reference Range Interpretation Comments Urine RBC (test code = 03096-5) 21-50 0-5 [facility]iscoBacteria detection in urine sediment by light tzxfgcglja3303-97-47 16:54:00 Test Item Value Reference Range Interpretation Comments Urine Bacteria (test code = 77517-3) MODERATE NONE [facility]iscoEpithelial cells detection in urine sediment by light vuvqherglt1963-74-26 16:54:00 Test Item Value Reference Range Interpretation Comments Urine Epithelial Cells (test code = MODERATE NONE 16339-1) [facility]iscoMucus detection in urine sediment by light yuhyrhmyjn7671-65-90 16:54:00 Test Item Value Reference Range Interpretation Comments Urine Mucus (test code = 8247-9) [facility]2022-10-08 15:52:00 [facility] : 1970 Sex: F [place] [address] Patient Name: SANGEETHA GARZA MR #: [id number] : 1970 Age/Sex: 52/F Req#: [id number] [facility] Physician: Ordered by: JULIENNE BANEGAS DO Report #: [id number] Location: ER Room/Bed: Report: Diagnostic Imaging Report Status: Signed Procedure: [id number] DX/CHEST SINGLE (PORTABLE) Exam Date: 10/08/22 Exam Time: 1500 TECHNIQUE: Frontal view of the chest. INDICATION: Fever. COMPARISON: None. FINDINGS: LINES/TUBES: None. HEART AND MEDIASTINUM: Cardiomediastinal contour is within normal limits. LUNGS: The lungs are well inflated and clear. No consolidation or pulmonary edema. PLEURA: No pneumothorax. No significant pleural effusion. SOFT TISSUES AND BONES: Bilateral ureteral stentsare present, incompletely included on this examination. IMPRESSION: No acute cardiopulmonary process. Signed by: Caleb Saul on 10/08/2022 3:52 PM Dictated By: Caleb Luna MD 53 Transcribed By: GRAZYNA on 10/08/221551 COPYTO: JULIENNE BANEGAS ABDOMEN/PELVIS [id number] 15:40:00 [facility] 1970 Sex: F [place] [address] Patient Name: SANGEETHA GARZA MR #: [id number] : 1970 Age/Sex: 52/F Req #: [id number] Adm Physician: Ordered by: JULIENNE BANEGAS DO Report #: [id number] Location: Room/Bed: Report: Diagnostic Imaging Report Status: Signed Procedure: [id number] CT/CT ABDOMEN/PELVIS WO Exam Date: 10/08/22 Exam Time: 1500 CT of the abdomen and pelvis without contrast Clinical History: Right flank pain Technique: CT of the abdomen and pelvis is performed without intravenous contrast administration. This exam was performed according to our departmental dose optimization program which includes automated exposure control, adjustment of the mA and/or kV according to patient's size and/or use of iterative reconstructive technique. Comparison Film: None Discussion: Visualized lower thorax is unremarkable. No liver lesion is identified on this noncontrast exam. No biliary ductal dilatation. Status post cholecystectomy. The spleen, pancreas, and adrenal glands are unremarkable. There is moderate bilateral hydronephrosis. Ureteral stents are present bilaterally. No radiopaque stone is identified. No contour deforming lesion. No bowel obstruction, or abnormal bowel wall thickening. Normal appendix. In the pelvis, bladder appears unremarkable. Uterus is absent. No adnexal mass. There is mild vascular calcification. No free air, ascites, or lymphadenopathy. No acute bony abnormality. Impression: Moderate bilateral hydronephrosis, and bilateral ureteral stents. Signed by: Crystal Rodriguez on 23:40 PM Dictated By: CRYSTAL RODRIGUEZ MD 447 Transcribed By: PSCRIBERNARDO on 10/08/22 1540 COPY TO: JULIENNE BANEGAS gdvfing5203-35-21 14:35:00 Test Item Value Reference Range Interpretation Comments Blood Culture (test NO GROWTH AFTER 5 code = 49474525) DAYS, FINAL REPORT [facility] leukocytes automated count (number/volume)2022-10-08 14:35:00 Test Item Value Reference Range Interpretation Comments White Blood Count (test code = 6690-2) 12.12 4.8-10.8 [facility] erythrocytes automated count (number/volume)2022-10-08 14:35:00 Test Item Value Reference Range Interpretation Comments Red Blood Count (test code = 789-8) 3.93 3.6-5.1 [facility] hemoglobin measurement (moles/volume) 2022-10-08 14:35:00 Test Item Value Reference Range Interpretation Comments Hemoglobin (test code = 25494-7) 11.5 12.0-16.0 [facility]iscoAutomated blood hematocrit (volume fraction) 2022-10-08 14:35:00 Test Item Value Reference Range Interpretation Comments Hematocrit (test code = 4544-3) 34.0 34.2-44.1 [facility]ated erythrocyte mean corpuscular volume 2022-10-08 14:35:00 Test Item Value Reference Range Interpretation Comments Mean Corpuscular Volume (test code = 86.5 81-99 787-2) [facility]isco[facility] erythrocyte mean corpuscular hemoglobin (mass per erythrocyte)2022-10-08 14:35:00 Test Item Value Reference Range Interpretation Comments Mean Corpuscular Hemoglobin (test code 29.3 28-32 = 785-6) [facility]iscoAutomated erythrocyte mean corpuscular hemoglobin concentration measurement (mass/volume)2022-10-08 14:35:00 Test Item Value Reference Range Interpretation Comments Mean Corpuscular Hemoglobin Concent 33.8 31-35 (test code = 786-4) [facility] FriscoRDW PzoJa-Xlo5264-65-13 14:35:00 Test Item Value Reference Range Interpretation Comments Red Cell Distribution Width (test code 12.3 11.7-14.4 = 75488-0) [facility]iscoAutomated blood platelet count (count/volume) 2022-10-08 14:35:00 Test Item Value Reference Range Interpretation Comments Platelet Count (test code = 777-3) 409 140-[address] [facility] neutrophil count as percentage of total lasgeowool7752-46-79 14:35:00 Test Item Value Reference Range Interpretation Comments Neutrophils (%) (Auto) (test code = 81.4 38.7-80.0 89686-8) [facility]iscoAutomated blood lymphocyte count as percentage ot total iohxkgyfjv5492-31-06 14:35:00 Test Item Value Reference Range Interpretation Comments Lymphocytes (%) (Auto) (test code = 9.4 18.0-39.1 736-9) [facility]iscoAutomated blood monocyte count as percentage of total slwvkflwpp0380-83-86 14:35:00 Test Item Value Reference Range Interpretation Comments Monocytes (%) (Auto) (test code = 8.3 4.4-11.3 5905-5) [facility]iscoAutomated blood eosinophil count as percentage of total vcvjqhmpoq0840-44-92 14:35:00 Test Item Value Reference Range Interpretation Comments Eosinophils (%) (Auto) (test code = 0.0 0.0-6.0 713-8) [facility]iscoAutomated blood basophil count as percentage of total bucuxarlxw5246-22-04 14:35:00 Test Item Value Reference Range Interpretation Comments Basophils (%) (Auto) (test code = 0.2 0.0-1.0 706-2) [facility] FriscoFluoroscopic procedure less than one hour rsdneuwv0116-26-93 14:35:00 Test Item Value Reference Range Interpretation Comments IM GRANULOCYTES % (test code = IM 0.7 0.0-1.0 GRANULOCYTES %) [facility]iscoAutomated blood neutrophil ciboe9301-45-12 14:35:00 Test Item Value Reference Range Interpretation Comments Neutrophils # (Auto) (test code = 9.9 2.1-6.9 751-8) [facility] lymphocytes count (number/volume) 2022-10-08 14:35:00 Test Item Value Reference Range Interpretation Comments Lymphocytes # (Auto) (test code = 1.1 1.0-3.2 38244-4) [facility]iscoBlood monocytes automated count (number/volume)2022-10-08 14:35:00 Test Item Value Reference Range Interpretation Comments Monocytes # (Auto) (test code = 742-7) 1.0 0.2-0.8 [facility] FriscoAutomated blood eosinophil tlhfw6567-97-75 14:35:00 Test Item Value Reference Range Interpretation Comments Eosinophils # (Auto) (test code = 0.0 0.0-0.4 711-2) [facility]iscoAutomated blood basophil count (count/volume) 2022-10-08 14:35:00 Test Item Value Reference Range Interpretation Comments Basophils # (Auto) (test code = 704-7) 0.0 0.0-0.1 [facility] FriscoFluoroscopic procedure less than one hour smnpwtry1029-79-14 14:35:00 Test Item Value Reference Range Interpretation Comments Absolute Immature Granulocyte (auto 0.09 0-0.1 (test code = Absolute Immature Granulocyte (auto) [facility] Mounderum or plasma sodium measurement (moles/volume)2022-10-08 14:35:00 Test Item Value Reference Range Interpretation Comments Sodium Level (test code = 2951-2) 135 136-145 [facility] Mounderum or plasma potassium measurement (moles/volume)2022-10-08 14:35:00 Test Item Value Reference Range Interpretation Comments Potassium Level (test code = 2823-3) 3.8 3.5-5.1 [facility] Mounderum or plasma chloride measurement (moles/volume)2022-10-08 14:35:00 Test Item Value Reference Range Interpretation Comments Chloride Level (test code = 2075-0) 96 98-107 [facility] FriscoInfluenza virus A and B antigen identification by lhaynsqgnkhkhvgwmj2860-45-76 14:35:00 Test Item Value Reference Range Interpretation Comments Influenza Virus Types A,B Antigen NEGATIVE NEGATIVE (test code = 98507-4) [facility] Mounderum or plasma carbon dioxide, total measurement (moles/volume)2022-10-08 14:35:00 Test Item Value Reference Range Interpretation Comments Carbon Dioxide Level (test code = 23 22-29 2027-) [facility] Mounderum or plasma anion lzh2033-32-02 14:35:00 Test Item Value Reference Range Interpretation Comments Anion Gap (test code = 48361-4) 19.8 8-16 [facility] Mounderum or plasma urea nitrogen measurement (mass/volume)2022-10-08 14:35:00 Test Item Value Reference Range Interpretation Comments Blood Urea Nitrogen (test code = 14 06-20 3094-0) [facility] Mounderum or plasma creatinine measurement (mass/volume)2022-10-08 14:35:00 Test Item Value Reference Range Interpretation Comments Creatinine (test code = 2160-0) 0.91 0.57-1.11 [facility] Mounderum or plasma urea nitrogen/creatinine mass eupws9122-95-24 14:35:00 Test Item Value Reference Range Interpretation Comments BUN/Creatinine Ratio (test code = 05-20 3097-3) [facility] FriscoGlomerular filtration rate/1.73 sq M.predicted [Volume Rate/Area] in Serum, Plasma or Blood by Creatinine-based formula (CKD-EPI 2020)2022-10-08 14:35:00 Test Item Value Reference Range Interpretation Comments Estimated GFR (CKD-EPI) 77 See_Comment [Au tomated message] The (test code = 48673-0) system which generated this result tra nsmitted reference range : >=60. The reference r aldo was not used to int erpret this result as normal/abnormal . [facility] FriscoGlucose tosilfmcduu8988-39-43 14:35:00 Test Item Value Reference Range Interpretation Comments Glucose Level (test code = UNZ0606) 114 74-118 [facility] Mounderum or plasma calcium measurement (mass/volume)2022-10-08 14:35:00 Test Item Value Reference Range Interpretation Comments Calcium Level (test code = 02924-7) 10.0 8.4-10.2 [facility] FriscoFluoroscopic procedure less than one hour wwtvcgcw9222-11-59 14:35:00 Test Item Value Reference Range Interpretation Comments Lactic Acid Level (test code = Lactic 1.7 0.5-2.0 Acid Level) [facility] Mounderum or plasma total bilirubin measurement (mass/volume)2022-10-08 14:35:00 Test Item Value Reference Range Interpretation Comments Total Bilirubin (test code = 1975-2) 0.6 0.2-1.2 [facility] FriscoFluoroscopic procedure less than one hour jvrdqoyy7598-05-07 14:35:00 Test Item Value Reference Range Interpretation Comments Aspartate Amino Transf (AST/SGOT) (test 18 5-34 code = Aspartate Amino Transf (AST/SGOT)) [facility] Mounderum or plasma alanine aminotransferase measurement (enzymatic activity/volume)2022-10-08 14:35:00 Test Item Value Reference Range Interpretation Comments Alanine Aminotransferase (ALT/SGPT) 15 0-55 (test code = 1742-6) [facility] Mounderum or plasma protein measurement (mass/volume)2022-10-08 14:35:00 Test Item Value Reference Range Interpretation Comments Total Protein (test code = 2885-2) 9.0 6.5-8.1 [facility]ounderum or plasma albumin measurement (mass/volume)2022-10-08 14:35:00 Test Item Value Reference Range Interpretation Comments Albumin (test code = 1751-7) 3.4 3.5-5.0 [facility] FriscoPlasma globulin measurement (mass/volume) 2022-10-08 14:35:00 Test Item Value Reference Range Interpretation Comments Globulin (test code = 35241-3) 5.6 2.3-3.5 [facility] Mounderum or plasma albumin/globulin mass ratio 2022-10-08 14:35:00 Test Item Value Reference Range Interpretation Comments Albumin/Globulin Ratio (test code = 0.6 0.8-2.0 1759-0) [facility] Mounderum or plasma alkaline phosphatase measurement (enzymatic activity/volume)2022-10-08 14:35:00 Test Item Value Reference Range Interpretation Comments Alkaline Phosphatase (test code = 153 40-150 6768-6) [facility] Mounderum or plasma lipase measurement (enzymatic activity/volume)2022-10-08 14:35:00 Test Item Value Reference Range Interpretation Comments Lipase (test code = 3040-3) 16 8-78 [facility] MoundARS-CoV-2 (COVID-19) RNA [Presence] in Respiratory specimen by MAUREEN with probe vslcsmwsa4449-01-72 14:35:00 Test Item Value Reference Range Interpretation Comments Coronavirus (PCR) (test code = NOT DETECTED NOTDETECTED 75173-2) [facility]iscoUS PELVIC (NON OB) JONES OR F/E7096-42-88 13:26:00[facility] : 1970 Sex: F [place] [address] Patient Name: SANGEETHA GARZA MR #: [id number] : 1970 Age/Sex: 52/F Req #: [id number] [facility] Physician: Ordered by: MIO WYATT MD Report #: [id number] Location: [place] Room/Bed: -- Report: Diagnostic Imaging Report Status: Signed Procedure: [id number] US/US PELVIC (NON OB) JONES OR F/U Exam Date: 09/11/22 Exam Time: 1004 EXAM: Renal Ultrasound INDICATION: Ureteral stents , urinary retention COMPARISON: None TECHNIQUE: Transverse and longitudinal images of the kidneys and bladder were obtained. FINDINGS: Right Kidney: Length: 11.0 cm Appearance: Normal echogenicity. Collecting system: Severe hydronephrosis Stones: None Cyst/Mass: None Left Kidney: Length: 11.0 cm Appearance: Normalechogenicity. Collecting system: Severe hydronephrosis Stones: None Cyst/Mass: None Bladder: No massor calculus. Prevoid bladder volume of 339 cc. Postvoid image demonstrates residual volume of 102 cc. IMPRESSION: Severe bilateral hydronephrosis. Partially visualized bilateral ureteral stents. Pre and post void bladder volumes as above with post void residual of 102 cc. Signed by: Florence Lucero on 09/11/2022 1:26 PM Dictated By: FLORENCE LUCERO MD 1328 Transcribed By: Plink SearchRISt[employer] on 09/11/22 1326 COPY TO: MIO WYATT RENAL RETROPERITONEAL [id number] 13:26:00 [facility]ENTER[facility] : 1970 Sex: F [place] [address] Patie nt Name: SANGEETHA GARZA MR #: [id number] : 1970 Age/Sex: 52/F Req #: [id number] Adm Physician: Ordered by: MIO WYATT MD Report #: [id number] Location: [place] Room/Bed: ---- Report: Diagnostic Imaging Report Status: Signed Procedure: [id number] US/US RENAL RETROPERITONEAL COMP Exam Date: 09/11/22 Exam Time: 1004 EXAM: Renal Ultrasound INDICATION: Ureteral stents , urinary retention COMPARISON: None TECHNIQUE: Transverse and longitudinal images of the kidneys and bladder were obtained. FINDINGS: Right Kidney: Length: 11.0 cm Appearance: Normal echogenicity. Collecting system: S evere hydronephrosis Stones: None Cyst/Mass: None Left Kidney: Length: 11.0 cm Appearance: Normal echogenicity. Collecting system: Severe hydronephrosis Stones: None Cyst/Mass: None Bladder: No mass orcalculus. Prevoid bladder volume of 339 cc. Postvoid image demonstrates residual volume of 102 cc. IMPRESSION: Severe bilateral hydronephrosis. Partially visualized bilateral ureteral stents. Pre and post void bladder volumes as above with post void residual of 102 cc. Signed by: Florence Lucero on 09/11/2022 1:26 PM Dictated By: FLORENCE LUCREO MD 27 Transcribed By: Plink SearchRIBE on 09/11/221325 COPY TO: MIO WYATTENAL SCAN W/QSOIG5805-86-99 12:37:00 [facility] : 1970 Sex: [place] [address] Patient Name: SANGEETHA GARZA MR #: [id number] : 1970 Age/Sex: 52/F Req#: [id number] [facility] Physician: Ordered by: MIO WYATT MD Report #: [id number] Location: [place] Room/Bed: Report: Diagnostic Imaging Report Status: Signed Procedure: [id number] NM/RENAL SCAN W/LASIX Exam Date: 09/11/22 Exam Time: 0900 PROCEDURE: Functional RENAL SCAN with Diuretic Stimulation CPT CODE: 65390 HISTORY: 52-year-old female, hydronephrosis. Correlation: Same day ultrasound. PROTOCOL: 10.0 mCi of Tc-99m MAG3 was injected intravenously. Renal flow images were obtained in the posterior projection, subsequent serial posterior images were obtained over 40 minutes. 40 mg of furosemide was injectedintravenously, 20 minutes after tracer injection. FINDINGS: There is prompt and symmetric perfusion of the kidneys. Initial renal activity is divided 46% to the left kidney and 54% to the right kidney. Extraction of tracer from the blood pool by the renal parenchyma is relatively normal bilaterally. Clearance of tracer from the renal parenchyma is prominent bilaterally. There is evidence of bilateralhydronephrosis, more prominent on the right. Increased pooling of tracer seen in the pelvicalyceal system. No significant clearance of tracer from the pelvicalyceal system is seen bilaterally prior to Lasix administration. Following Lasix administration, there is minimal washout from the renal collecting systems. Worse on the right than left. IMPRESSION: Constellation of findings suggestive of at least partial obstruction bilaterally, worse within the right collecting system. Signed by: Vivek Aaron on 09/11/2022 12:37 PM Dictated By: Vivek Aaron MD 1239 Transcribed By: GRAZYNA on 09/11/22 1237 COPY TO: MIO WYATT [address]oqwi4177-65-17 03:48:11 Test Item Value Reference Range Interpretation Comments Ventricular rate (test 119 code = 253) Atrial rate (test code 119 = 255) MI interval (test code 142 = 266) QRSD interval (test 66 code = 260) QT interval (test code 332 = 264) QTC interval (test code 467 = 265) P axis 1 (test code = 68 267) QRS axis 1 (test code = 47 268) T wave axis (test code 65 = 270) EKG impression (test Sinus code = 273) tachycardia-Otherwise normal ECG-In automated comparison with ECG of 14-DEC-2019 21:19,-No significant change was found- [address]2022-09-17 03:48:11 Test Item Value Reference Range Interpretation Comments Ventricular rate (test code = 253) Atrial rate (test code = 255) MI interval (test code = 266) QRSD interval (test code = 260) QT interval (test code = 264) QTC interval (test code = 265) P axis 1 (test code = 267) QRS axis 1 (test code = 268) T wave axis (test code = 270) EKG impression (test Sinus code = 273) tachycardia-Otherwise normal ECG-In automated comparison with ECG of 14-DEC-2019 21:19,-No significant change was found- [address]2022-09-17 03:48:11 Test Item Value Reference Range Interpretation Comments Ventricular rate (test code = 253) Atrial rate (test code = 255) MI interval (test code = 266) QRSD interval (test code = 260) QT interval (test code = 264) QTC interval (test code = 265) P axis 1 (test code = 267) QRS axis 1 (test code = 268) T wave axis (test code = 270) EKG impression (test Sinus code = 273) tachycardia-Otherwise normal ECG-In automated comparison with ECG of 14-DEC-2019 21:19,-No significant change was found- [facility] 12 jiwx0646-68-20 03:48:11 Test Item Value Reference Range Interpretation Comments Ventricular rate (test 119 code = 253) Atrial rate (test code 119 = 255) MI interval (test code 142 = 266) QRSD interval (test 66 code = 260) QT interval (test code 332 = 264) QTC interval (test code 467 = 265) P axis 1 (test code = 68 267) QRS axis 1 (test code = 47 268) T wave axis (test code 65 = 270) EKG impression (test Sinus code = 273) tachycardia-Otherwise normal ECG-In automated comparison with ECG of 14-DEC-2019 21:19,-No significant change was found- [facility]2022-08-25 15:49:00 Test Item Value Reference Range Interpretation Comments Urine culture Mixed josé miguel Specimen isolate (test <=10-3 col/cc InformationSp ecimen code = 56680-8) Source: [facility] Site: [facility]2022-08-25 15:49:00 Test Item Value Reference Range Interpretation Comments Urine culture Mixed josé miguel Specimen isolate (test <=10-3 col/cc InformationSp ecimen code = 93047-4) Source: [facility] Site: [facility] qzevksv5035-62-28 00:45:00 Test Item Value Reference Range Interpretation Comments POC glucose (test code 136 mg/dL 65-100 H Oper tor Name: Anali = 04140-3) Edison ID : [id number] Lab Interpretation Abnormal (test code = 97678-9) [facility] cfiucza7558-50-00 00:45:00 Test Item Value Reference Range Interpretation Comments POC glucose (test code 136 mg/dL 65-100 H Opera tor Name: Anali = 81669-9) FosterDevice ID : [id number] Lab Interpretation Abnormal (test code = 12143-0) [facility] oeojsse1385-14-43 00:45:00 Test Item Value Reference Range Interpretation Comments POC glucose (test code 136 mg/dL 65-100 H Opera tor Name: Anali = 65734-1) Foster[employer] ID : [id number] Lab Interpretation Abnormal (test code = 65157-9) [facility] jgruaom6423-20-95 00:45:00 Test Item Value Reference Range Interpretation Comments POC glucose (test code 136 mg/dL 65-100 H Opera tor Name: Anali = 12971-4) FosterDevice ID : [id number] Lab Interpretation Abnormal (test code = 70376-8) [facility]-CoV-2 (COVID-19) RNA [Presence] in Respiratory specimen by MAUREEN with probe vmdqevqke7557-40-50 06:32:43 Test Item Value Reference Range Interpretation Comments SARS-CoV-2 (COVID-19) RNA Not detected [Presence] in Respiratory specimen by MAUREEN with probe detection (test code = 76373-7) Whether patient is employed in a Unknown healthcare setting (test code = 46298-6) Whether the patient has symptoms Unknown related to condition of interest (test code = 24136-2) Whether the patient was Unknown hospitalized for condition of interest (test code = 53066-3) Whether the patient was admitted Unknown to intensive care unit (ICU) for condition of interest (test code = 98382-7) Whether patient resides in a Unknown congregate care setting (test code = 27107-4) status (test code = Unknown 29800-4) Date and time of symptom onset Unknown (test code = 55306-7) [facility] (COVID[facility]19) RNA [Presence] in Respiratory specimen by MAUREEN with probe rmbmecain5290-98-14 09:55:09 Test Item Value Reference Range Interpretation Comments SARS-CoV-2 (COVID-19) RNA Not detected [Presence] in Respiratory specimen by MAUREEN with probe detection (test code = 72993-2) Whether patient is employed in a Unknown healthcare setting (test code = 59964-5) Whether the patient has symptoms Unknown related to condition of interest (test code = 59114-7) Whether the patient was Unknown hospitalized for condition of interest (test code = 80299-4) Whether the patient was admitted Unknown to intensive care unit (ICU) for condition of interest (test code = 16303-8) Whether patient resides in a Unknown congregate care setting (test code = 73755-8) status (test code = Unknown 41012-2) Date and time of symptom onset Unknown (test code = 68532-3) AMY STEEN NXXGLBPXJFML-KnX-7 (COVID-19) RNA [Presence] in Respiratory specimen by MAUREEN with probe pcqxeised6396-26-54 12:06:03 Test Item Value Reference Range Interpretation Comments SARS-CoV-2 (COVID-19) RNA Not detected [Presence] in Respiratory specimen by MAUREEN with probe detection (test code = 19746-9) Whether patient is employed in a Unknown healthcare setting (test code = 31014-0) Whether the patient has symptoms Unknown related to condition of interest (test code = 67052-2) Whether the patient was Unknown hospitalized for condition of interest (test code = 81558-4) Whether the patient was admitted Unknown to intensive care unit (ICU) for condition of interest (test code = 49711-9) Whether patient resides in a Unknown congregate care setting (test code = 81030-4) status (test code = Unknown 85797-1) Date and time of symptom onset Unknown (test code = 18552-1) AMY STEEN YKZCQOFJBJMA-CzE-2 (COVID-19) RNA [Presence] in Respiratory specimen by MAUREEN with probe ubglofovh5856-88-24 09:19:09 Test Item Value Reference Range Interpretation Comments SARS-CoV-2 (COVID-19) RNA Not detected [Presence] in Respiratory specimen by MAUREEN with probe detection (test code = 00351-2) Whether patient is employed in a Unknown healthcare setting (test code = 80055-0) Whether the patient has symptoms Unknown related to condition of interest (test code = 24145-9) Whether the patient was Unknown hospitalized for condition of interest (test code = 70336-7) Whether the patient was admitted Unknown to intensive care unit (ICU) for condition of interest (test code = 20269-3) Whether patient resides in a Unknown congregate care setting (test code = 45495-6) status (test code = Unknown 53806-7) Date and time of symptom onset Unknown (test code = 10946-9) [facility] [id number] 23:04:30EXAMINATION: FL PYELOGRAM RETROGRADE CLINICAL HISTORY: Right hydronephrosis COMPARISON: CT scan doneyesterday FINDINGS: 9 images are submitted, showing a right retrograde injection. As seen on the previous scans, there is moderate dilation of the right renal pelvis, mild/moderate ureteral dilation, also mild calyceal dilation. No intraluminal stone or obstructing lesion is seen. A stent was placed, in good position. IMPRESSION: Right hydronephrosis Recommend correlation with procedural report [id number] Interface, Radiology Results - 06/02/2021 6:07 PM CDTFormatting of this note mightbe different from the original.EXAMINATION: FL PYELOGRAM RETROGRADECLINICAL HISTORY: Right hydronephrosisCOMPARISON: CT scan done yesterdayFINDINGS: 9 images are submitted, showing a right retrograde injection. As seen on the previous scans, there is moderate dilation of the right renal pelvis, mild/moderate ureteral dilation, also mild calyceal dilation. No intraluminal stone or obstructing lesion is seen. A stent was placed, in good position.IMPRESSION: Right hydronephrosisRecommend correlation with procedural [id number] [id number] 19:28:45Aileen Sheriff CRNA 06/02/2021 2:29 [address]MAir[address] Location: OR Performed by: DEANGELO/Alison/DEANGELO/AA: Aileen Sheriff CRNAAuthorized by: Jethro Angulo MD Urgency: ElectiveDifficult Airway: No Preoxygenated with 100% O2: Yes C-spine Precautions Maintained Throughout: Yes Mask Ventilation: Not attemptedFinal Airway Type: Supraglottic airwayFinal LMA: UniqueLMA Size: 3CT Renal Stone [id number] 05:40:28EXAMINATION: CT RENAL STONE PROTOCOL CLINICAL HISTORY: Flank pain kidney stone suspected COMPARISON:CT renal stone 12/16/2019. TECHNIQUE: CT of the abdomen and pelvis without intravenous contrast. Absence of intravenous contrast decreases sensitivity for detection of focal lesions and vascular pathology. CT imaging was performed with iterative reconstruction techniques and/or automated exposure control to reduce radiation dose. FINDINGS: LOWER THORAX: Bibasilar atelectasis. No lobar consolidation. Heart size is normal. Trace pericardial fluid. HEPATOBILIARY: No focal hepatic lesions. No biliary ductal dilation. Prior cholecystectomy. SPLEEN: No splenomegaly. PANCREAS: No focal masses or ductal dilation. ADRENALS: No adrenal nodules. KIDNEYS: Severe right hydroureteronephrosis has increased since the prior examination, with the proximal ureter now measuring up to 4.4 cm in diameter, previously 2.9 cm. Mild periureteral fat stranding is present. No sharp transition point is identified. There is gradual tapering towards the right ureterovesicular junction. No renal or ureteral calculi are visualized. The left kidney is normal in appearance without nephrolithiasis or hydronephrosis. GI TRACT: Visualized portions of the bowel demonstrate no distention or wall thickening. The appendix is not visual ized. PERITONEUM/RETROPERITONEUM: Trace free fluid in the pelvis is likely physiologic. No intraperitoneal free air. VASCULATURE: Abdominal aorta is nonaneurysmal. Scattered mild vascular calcifications. PELVIC ORGANS/BLADDER: Prior hysterectomy. Bladder wall appears mildly thickened. BONES AND SOFT TI SSUES: No suspicious osseous lesions. IMPRESSION: 1.Severe right hydroureteronephrosis with mild periureteral fat stranding, progressed since the prior examination. There is gradual tapering towards the right vesicoureteral junction. No obstructing stone or mass is identified findings may be secondaryto urinary tract infection or possible ureteral stricture. Consider further evaluation with a urological consultation.2.Mild bladder wall thickening could reflect cystitis. Recommend correlation with urinalysis. [facility]-[id number] Dictated and approved by vice president of brand management/fellow: Kaylan Thomas M.D. I, David Cates M.D., personally reviewed the images and resident's/fellow's findings and agree with thefinal report.[facility], Radiology Results Incoming - 06/02/2021 12:43 AM CDT EXAMINATION: CT RENAL STONE PROTOCOLCLINICAL HISTORY: Flank pain kidney stone suspectedCOMPARISON: CT renal stone 12/16/2019.TECHNIQUE: CT of the abdomen and pelvis without intravenous contrast. Absence of intravenous contrast decreases sensitivity for detection of focal lesions and vascular pathology.CT imaging was performed with iterative reconstruction techniques and/or automated exposure control to reduce radiation dose. FINDINGS:LOWER THORAX: Bibasilar atelectasis. No lobar consolidation. Heart size is normal. Trace pericardial fluid.HEPATOBILIARY: No focal hepatic lesions. No biliary ductal dilation. Prior cholecystectomy.SPLEEN: No splenomegaly.PANCREAS: No focal masses or ductal dilation.ADRENALS: No adrenal nodules.KIDNEYS: Severe right hydroureteron ephrosis has increased since the prior examination, with the proximal ureter now measuring up to 4.4cm in diameter, previously 2.9 cm. Mild periureteral fat stranding is present. No sharp transition point is identified. There is gradual tapering towards the right ureterovesicular junction. No renal or ureteral calculi are visualized. The left kidney is normal in appearance without nephrolithiasis orhydronephrosis.GI TRACT: Visualized portions of the bowel demonstrate no distention or wall thickening. The appendix is not visualized.PERITONEUM/RETROPERITONEUM: Trace free fluid in the pelvis is likely physiologic. No intraperitoneal free air.VASCULATURE: Abdominal aorta is nonaneurysmal. Scattered mild vascular calcifications.PELVIC ORGANS/BLADDER: Prior hysterectomy. Bladder wall appears mildly thickened.BONES AND SOFT TISSUES: No suspicious osseous lesions.IMPRESSION:1.Severe right hydroureteron ephrosis with mild periureteral fat stranding, progressed since the prior examination. There is gradual tapering towards the right vesicoureteral junction. No obstructing stone or mass is identified findings may be secondary to urinary tract infection or possible ureteral stricture. Consider further ev aluation with a urological consultation.2.Mild bladder wall thickening could reflect cystitis. Recommend correlation with urinalysis. [facility]-[id number] and approved by vice president of brand management/fellow: Kaylan Thomas M.D.I, David Cates M.D., personally reviewed the images and resident's/fellow's findings and agree with the final report.[facility], [facility] 2021-02-18 00:00:00 Test Item Value Reference Range Interpretation Comments Interpretation and review of laboratory note results (test code = 12201-9) Report (test code = 29246-3) . [facility]aleUrinalysis macro (dipstick) panel - [id number] 15:34:00 Test Item Value Reference Range Interpretation Comments Leukocytes (test code = Leukocytes) large Nitrite (test code = Nitrite) positive Urobilinogen (test code = neg Urobilinogen) Protein (test code = Protein) positive pH (test code = pH) 6.0 Blood (test code = Blood) moderate Specific [place] (test code = 1.030 Specific [place]) Ketone (test code = Ketone) neg Bilirubin (test code = Bilirubin) neg Glucose (test code = Glucose) positive [facility]aleLipid 1995 panel - Serum or Plasma 2020-11-04 00:00:00 Test Item Value Reference Range Interpretation Comments Cholesterol [Mass/volume] in Serum 241 mg/dL 100-199 H or Plasma (test code = 2093-3) Triglyceride [Mass/volume] in Serum 180 mg/dL 0-149 H or Plasma (test code = 2571-8) Cholesterol in HDL [Mass/volume] in 66 mg/dL >39 Serum or Plasma (test code = 2085-9) Cholesterol in VLDL [Mass/volume] 32 mg/dL 5-40 in Serum or Plasma by calculation (test code = 31273-1) Cholesterol in LDL [Mass/volume] in 143 mg/dL 0-99 H Serum or Plasma by calculation (test code = 97463-1) Laboratory comment [Text] in Report specialist wound care Narrative (test code = 86719-6) [facility]aleAcute hepatitis 2000 panel - Serum 2020-11-04 00:00:00 Test Item Value Reference Range Interpretation Comments Hepatitis A virus IgM Ab [Presence] negative negative in Serum or Plasma by Immunoassay (test code = 90100-1) Hepatitis B virus surface Ag negative negative [Presence] in Serum or Plasma by Immunoassay (test code = 5196-1) Hepatitis B virus core IgM Ab negative negative [Presence] in Serum or Plasma by Immunoassay (test code = 74369-4) Hepatitis C virus Ab Signal/Cutoff <0.1 0.0-0.9 in Serum or Plasma by Immunoassay (test code = 53187-9) [facility]aleFolate+Cyanocobalamin [Interpretation] in Serum or [id number] 00:00:00 Test Item Value Reference Range Interpretation Comments Cobalamin (Vitamin B12) 706 pg/mL 232-1245 [Mass/volume] in Serum or Plasma (test code = 2132-9) Folate [Mass/volume] in Serum or 8.1 NG/mL >3.0 Plasma (test code = 2284-8) [facility]valeHemoglobin A1c/Hemoglobin.total in [id number] 00:00:00 Test Item Value Reference Range Interpretation Comments Hemoglobin A1c/Hemoglobin.total in 5.7 % 4.8-5.6 H Blood (test code = 4548-4) Glucose mean value [Mass/volume] in 117 mg/dL Blood Estimated from glycated hemoglobin (test code = 87337-6) [facility]aleHepatitis B virus surface Ab [Presence] in [id number] 00:00:00 Test Item Value Reference Range Interpretation Comments Hepatitis B virus surface Ab reactive [Presence] in Serum (test code = 95695-6) [facility]25-Hydroxyvitamin D3+25- Hydroxyvitamin D2 [Mass/volume] in Serum or [id number] 00:00:00 Test Item Value Reference Range Interpretation Comments 25-Hydroxyvitamin 7.8 NG/mL 30.0-100.0 L D3+25-Hydroxyvitamin D2 [Mass/volume] in Serum or Plasma (test code = 28895-6) [facility]aleHIV 1+2 Ab+HIV1 p24 Ag [Presence] in Serum or Plasma by [id number] 00:00:00 Test Item Value Reference Range Interpretation Comments HIV 1+2 Ab+HIV1 p24 Ag non reactive non reactive [Presence] in Serum or Plasma by Immunoassay (test code = 41370-8) [facility] Sunnyvalecardiovascular assessment panel, [id number] 00:00:00 Test Item Value Reference Range Interpretation Comments interpretation (test code = note interpretation) pdf (test code = pdf) . [facility]aleComprehensive metabolic 2000 panel - Serum or [id number] 00:00:00 Test Item Value Reference Range Interpretation Comments Glucose [Mass/volume] in Serum 90 mg/dL 65-99 or Plasma (test code = 2345-7) Urea nitrogen [Mass/volume] in 14 mg/dL 6-24 Serum or Plasma (test code = 3094-0) Creatinine [Mass/volume] in 0.83 mg/dL 0.57-1.00 Serum or Plasma (test code = 2160-0) Glomerular filtration 84 mL/min/1.73 >59 rate/1.73 sq M.predicted among non-blacks [Volume Rate/Area] in Serum, Plasma or Blood by Creatinine-based formula (CKD-EPI) (test code = 18497-6) Glomerular filtration 96 mL/min/1.73 >59 rate/1.73 sq M.predicted among blacks [Volume Rate/Area] in Serum, Plasma or Blood by Creatinine-based formula (CKD-EPI) (test code = 03061-1) Urea nitrogen/Creatinine [Mass 17 9-23 Ratio] in Serum or Plasma (test code = 3097-3) Sodium [Moles/volume] in Serum 139 mmol/L 134-144 or Plasma (test code = 2951-2) Potassium [Moles/volume] in 4.6 mmol/L 3.5-5.2 Serum or Plasma (test code = 2823-3) Chloride [Moles/volume] in 99 mmol/L 96-106 Serum or Plasma (test code = 5-0) Carbon dioxide, total 26 mmol/L 20-29 [Moles/volume] in Serum or Plasma (test code = 2027-9) Calcium [Mass/volume] in Serum 9.8 mg/dL 8.7-10.2 or Plasma (test code = 68797-3) Protein [Mass/volume] in Serum 7.1 g/dL 6.0-8.5 or Plasma (test code = 2885-2) Albumin [Mass/volume] in Serum 4.4 g/dL 3.8-4.8 or Plasma (test code = 1751-7) Globulin [Mass/volume] in 2.7 g/dL 1.5-4.5 Serum by calculation (test code = 10056-9) Albumin/Globulin [Mass Ratio] 1.6 1.2-2.2 in Serum or Plasma (test code = 1759-0) Bilirubin.total [Mass/volume] 0.3 mg/dL 0.0-1.2 in Serum or Plasma (test code = 1975-2) Alkaline phosphatase 91 IU/L 39-117 [Enzymatic activity/volume] in Serum or Plasma (test code = 6768-6) Aspartate aminotransferase 22 IU/L 0-40 [Enzymatic activity/volume] in Serum or Plasma (test code = 1920-8) Alanine aminotransferase 21 IU/L 0-32 [Enzymatic activity/volume] in Serum or Plasma (test code = 1742-6) [facility]aleFree T4 and TSH panel - Serum or [id number] 00:00:00 Test Item Value Reference Range Interpretation Comments Thyrotropin [Units/volume] in 0.550 uIU/mL 0.450-4.500 Serum or Plasma by Detection limit <= 0.005 mIU/L (test code = 23130-7) Thyroxine (T4) free 1.10 NG/dL 0.82-1.77 [Mass/volume] in Serum or Plasma (test code = 3024-7) [facility] SunnyvaleCBC W Auto Differential panel - Blood 2020-11-04 00:00:00 Test Item Value Reference Range Interpretation Comments Leukocytes [#/volume] in Blood 4.3 x10e3/uL 3.4-10.8 by Automated count (test code = 6690-2) Erythrocytes [#/volume] in 4.31 x10e6/uL 3.77-5.28 Blood by Automated count (test code = 789-8) Hemoglobin [Mass/volume] in 13.0 g/dL 11.1-15.9 Blood (test code = 718-7) Hematocrit [Volume Fraction] of 38.5 % 34.0-46.6 Blood by Automated count (test code = 4544-3) MCV [Entitic volume] by 89 fL 79-97 Automated count (test code = 787-2) MCH [Entitic mass] by Automated 30.2 pg 26.6-33.0 count (test code = 785-6) MCHC [Mass/volume] by Automated 33.8 g/dL 31.5-35.7 count (test code = 786-4) Erythrocyte distribution width 13.0 % 11.7-15.4 [Ratio] by Automated count (test code = 788-0) Platelets [#/volume] in Blood 296 x10e3/uL 150-450 by Automated count (test code = 777-3) Neutrophils/100 leukocytes in 60 % not estab. Blood by Automated count (test code = 770-8) Lymphocytes/100 leukocytes in 29 % not estab. Blood by Automated count (test code = 736-9) Monocytes/100 leukocytes in 10 % not estab. Blood by Automated count (test code = 5905-5) Eosinophils/100 leukocytes in 1 % not estab. Blood by Automated count (test code = 713-8) Basophils/100 leukocytes in 0 % not estab. Blood by Automated count (test code = 706-2) immature cells (test code = specialist wound care immature cells) Neutrophils [#/volume] in Blood 2.6 x10e3/uL 1.4-7.0 by Automated count (test code = 751-8) Lymphocytes [#/volume] in Blood 1.3 x10e3/uL 0.7-3.1 by Automated count (test code = 731-0) Monocytes [#/volume] in Blood 0.5 x10e3/uL 0.1-0.9 by Automated count (test code = 742-7) Eosinophils [#/volume] in Blood 0.0 x10e3/uL 0.0-0.4 by Automated count (test code = 711-2) Basophils [#/volume] in Blood 0.0 x10e3/uL 0.0-0.2 by Automated count (test code = 704-7) Immature granulocytes/100 0 % not estab. leukocytes in Blood by Automated count (test code = 40536-9) Immature granulocytes 0.0 x10e3/uL 0.0-0.1 [#/volume] in Blood by Automated count (test code = 45283-7) Nucleated erythrocytes/100 specialist wound care leukocytes [Ratio] in Blood by Automated count (test code = 09295-8) Morphology [Interpretation] in specialist wound care Blood Narrative (test code = 55393-2) [facility] ProgramUrinalysis complete panel - Urine 2020-11-04 00:00:00 Test Item Value Reference Range Interpretation Comments Specific gravity of Urine (test 1.020 1.005-1.030 code = 2965-2) pH of Urine by Test strip (test 7.0 5.0-7.5 code = 5803-2) Color of Urine (test code = yellow yellow 5778-6) Appearance of Urine (test code = clear clear 5767-9) Leukocyte esterase [Presence] in negative negative Urine by Test strip (test code = 5799-2) Protein [Presence] in Urine by negative negative/trace Test strip (test code = 22210-9) Glucose [Presence] in Urine (test negative negative code = 2349-9) Ketones [Presence] in Urine by negative negative Test strip (test code = 2514-8) Hemoglobin [Presence] in Urine by negative negative Test strip (test code = 5794-3) Bilirubin.total [Presence] in negative negative Urine by Test strip (test code = 5770-3) Urobilinogen [Mass/volume] in 0.2 mg/dL 0.2-1.0 Urine by Test strip (test code = 67139-7) Nitrite [Presence] in Urine by negative negative Test strip (test code = 5802-4) Microscopic observation see below: [Identifier] in Urine sediment by Light microscopy (test code = 32828-7) Leukocytes [#/area] in Urine 0-5 0-5 sediment by Microscopy high power field (test code = 5821-4) Erythrocytes [#/area] in Urine 0-2 0-2 sediment by Microscopy high power field (test code = 12942-4) Epithelial cells [#/area] in Urine 0-10 0-10 sediment by Microscopy high power field (test code = 5787-7) Epithelial cells.renal [#/area] in specialist wound care Urine sediment by Microscopy high power field (test code = 85612-7) Casts [Presence] in Urine sediment specialist wound care by Light microscopy (test code = 62700-4) Casts [Type] in Urine sediment by specialist wound care Light microscopy (test code = 63406-3) Unidentified crystals [Presence] specialist wound care in Urine sediment by Light microscopy (test code = 5783-6) Crystals [type] in Urine sediment specialist wound care by Light microscopy (test code = 5782-8) Mucus [Presence] in Urine sediment present not estab. by Light microscopy (test code = 8247-9) Bacteria [#/area] in Urine none seen none seen/few sediment by Microscopy high power field (test code = 5769-5) Yeast [#/area] in Urine sediment specialist wound care by Microscopy high power field (test code = 5822-2) Trichomonas vaginalis [Presence] specialist wound care in Urine sediment by Light microscopy (test code = 5813-1) Urine sediment comments by Light specialist wound care microscopy Narrative (test code = 64867-1) [facility]aleLipid 1996 panel - Serum or Plasma 2020-11-04 00:00:00 Test Item Value Reference Range Interpretation Comments Cholesterol [Mass/volume] in Serum 241 mg/dL 100-199 H or Plasma (test code = 2093-3) Triglyceride [Mass/volume] in Serum 180 mg/dL 0-149 H or Plasma (test code = 2571-8) Cholesterol in HDL [Mass/volume] in 66 mg/dL >39 Serum or Plasma (test code = 2085-9) Cholesterol in VLDL [Mass/volume] 32 mg/dL 5-40 in Serum or Plasma by calculation (test code = 84316-4) Cholesterol in LDL [Mass/volume] in 143 mg/dL 0-99 H Serum or Plasma by calculation (test code = 25676-1) Laboratory comment [Text] in Report specialist wound care Narrative (test code = 42862-0) [facility]aleAcute hepatitis 2000 panel - Serum 2020-11-04 00:00:00 Test Item Value Reference Range Interpretation Comments Hepatitis A virus IgM Ab [Presence] negative negative in Serum or Plasma by Immunoassay (test code = 51175-6) Hepatitis B virus surface Ag negative negative [Presence] in Serum or Plasma by Immunoassay (test code = 5196-1) Hepatitis B virus core IgM Ab negative negative [Presence] in Serum or Plasma by Immunoassay (test code = 64317-0) Hepatitis C virus Ab Signal/Cutoff <0.1 0.0-0.9 in Serum or Plasma by Immunoassay (test code = 95053-5) [facility]aleFolate+Cyanocobalamin [Interpretation] in Serum or [id number] 00:00:00 Test Item Value Reference Range Interpretation Comments Cobalamin (Vitamin B12) 706 pg/mL 232-1245 [Mass/volume] in Serum or Plasma (test code = 2132-9) Folate [Mass/volume] in Serum or 8.1 NG/mL >3.0 Plasma (test code = 2284-8) [facility] SunnyvaleHemoglobin A1c/Hemoglobin.total in Pirdn2526-05-90 00:00:00 Test Item Value Reference Range Interpretation Comments Hemoglobin A1c/Hemoglobin.total in 5.7 % 4.8-5.6 H Blood (test code = 4548-4) Glucose mean value [Mass/volume] in 117 mg/dL Blood Estimated from glycated hemoglobin (test code = 80417-9) [facility] SunnyvaleHepatitis B virus surface Ab [Presence] in [id number] 00:00:00 Test Item Value Reference Range Interpretation Comments Hepatitis B virus surface Ab reactive [Presence] in Serum (test code = 33545-5) [facility]25-Hydroxyvitamin D3+25- Hydroxyvitamin D2 [Mass/volume] in Serum or [id number] 00:00:00 Test Item Value Reference Range Interpretation Comments 25-Hydroxyvitamin 7.8 NG/mL 30.0-100.0 L D3+25-Hydroxyvitamin D2 [Mass/volume] in Serum or Plasma (test code = 73900-5) [facility]valeHIV 1+2 Ab+HIV1 p24 Ag [Presence] in Serum or Plasma by Wuuhtrmxiaj8061-02-07 00:00:00 Test Item Value Reference Range Interpretation Comments HIV 1+2 Ab+HIV1 p24 Ag non reactive non reactive [Presence] in Serum or Plasma by Immunoassay (test code = 22460-7) [facility] Sunnyvalecardiovascular assessment panel, [id number] 00:00:00 Test Item Value Reference Range Interpretation Comments interpretation (test code = note interpretation) pdf (test code = pdf) . [facility] SunnyvaleComprehensive metabolic 2000 panel - Serum or [id number] 00:00:00 Test Item Value Reference Range Interpretation Comments Glucose [Mass/volume] in Serum 90 mg/dL 65-99 or Plasma (test code = 2345-7) Urea nitrogen [Mass/volume] in 14 mg/dL 6-24 Serum or Plasma (test code = 3094-0) Creatinine [Mass/volume] in 0.83 mg/dL 0.57-1.00 Serum or Plasma (test code = 2160-0) Glomerular filtration 84 mL/min/1.73 >59 rate/1.73 sq M.predicted among non-blacks [Volume Rate/Area] in Serum, Plasma or Blood by Creatinine-based formula (CKD-EPI) (test code = 27965-6) Glomerular filtration 96 mL/min/1.73 >59 rate/1.73 sq M.predicted among blacks [Volume Rate/Area] in Serum, Plasma or Blood by Creatinine-based formula (CKD-EPI) (test code = 46754-0) Urea nitrogen/Creatinine [Mass 17 9-23 Ratio] in Serum or Plasma (test code = 3097-3) Sodium [Moles/volume] in Serum 139 mmol/L 134-144 or Plasma (test code = 2951-2) Potassium [Moles/volume] in 4.6 mmol/L 3.5-5.2 Serum or Plasma (test code = 2823-3) Chloride [Moles/volume] in 99 mmol/L 96-106 Serum or Plasma (test code = 2075-0) Carbon dioxide, total 26 mmol/L 20-29 [Moles/volume] in Serum or Plasma (test code = 2027-) Calcium [Mass/volume] in Serum 9.8 mg/dL 8.7-10.2 or Plasma (test code = 98429-8) Protein [Mass/volume] in Serum 7.1 g/dL 6.0-8.5 or Plasma (test code = 2885-2) Albumin [Mass/volume] in Serum 4.4 g/dL 3.8-4.8 or Plasma (test code = 1751-7) Globulin [Mass/volume] in 2.7 g/dL 1.5-4.5 Serum by calculation (test code = 59008-0) Albumin/Globulin [Mass Ratio] 1.6 1.2-2.2 in Serum or Plasma (test code = 1759-0) Bilirubin.total [Mass/volume] 0.3 mg/dL 0.0-1.2 in Serum or Plasma (test code = 1974-) Alkaline phosphatase 91 IU/L 39-117 [Enzymatic activity/volume] in Serum or Plasma (test code = 6768-6) Aspartate aminotransferase 22 IU/L 0-40 [Enzymatic activity/volume] in Serum or Plasma (test code = 1920-8) Alanine aminotransferase 21 IU/L 0-32 [Enzymatic activity/volume] in Serum or Plasma (test code = 1742-6) [facility]aleFree T4 and TSH panel - Serum or [id number] 00:00:00 Test Item Value Reference Range Interpretation Comments Thyrotropin [Units/volume] in 0.550 uIU/mL 0.450-4.500 Serum or Plasma by Detection limit <= 0.005 mIU/L (test code = 16118-6) Thyroxine (T4) free 1.10 NG/dL 0.82-1.77 [Mass/volume] in Serum or Plasma (test code = 3024-7) [facility] SunnyvaleCBC W Auto Differential panel - Blood 2020-11-04 00:00:00 Test Item Value Reference Range Interpretation Comments Leukocytes [#/volume] in Blood 4.3 x10e3/uL 3.4-10.8 by Automated count (test code = 6690-2) Erythrocytes [#/volume] in 4.31 x10e6/uL 3.77-5.28 Blood by Automated count (test code = 789-8) Hemoglobin [Mass/volume] in 13.0 g/dL 11.1-15.9 Blood (test code = 718-7) Hematocrit [Volume Fraction] of 38.5 % 34.0-46.6 Blood by Automated count (test code = 4544-3) MCV [Entitic volume] by 89 fL 79-97 Automated count (test code = 787-2) MCH [Entitic mass] by Automated 30.2 pg 26.6-33.0 count (test code = 785-6) MCHC [Mass/volume] by Automated 33.8 g/dL 31.5-35.7 count (test code = 786-4) Erythrocyte distribution width 13.0 % 11.7-15.4 [Ratio] by Automated count (test code = 788-0) Platelets [#/volume] in Blood 296 x10e3/uL 150-450 by Automated count (test code = 777-3) Neutrophils/100 leukocytes in 60 % not estab. Blood by Automated count (test code = 770-8) Lymphocytes/100 leukocytes in 29 % not estab. Blood by Automated count (test code = 736-9) Monocytes/100 leukocytes in 10 % not estab. Blood by Automated count (test code = 5905-5) Eosinophils/100 leukocytes in 1 % not estab. Blood by Automated count (test code = 713-8) Basophils/100 leukocytes in 0 % not estab. Blood by Automated count (test code = 706-2) immature cells (test code = specialist wound care immature cells) Neutrophils [#/volume] in Blood 2.6 x10e3/uL 1.4-7.0 by Automated count (test code = 751-8) Lymphocytes [#/volume] in Blood 1.3 x10e3/uL 0.7-3.1 by Automated count (test code = 731-0) Monocytes [#/volume] in Blood 0.5 x10e3/uL 0.1-0.9 by Automated count (test code = 742-7) Eosinophils [#/volume] in Blood 0.0 x10e3/uL 0.0-0.4 by Automated count (test code = 711-2) Basophils [#/volume] in Blood 0.0 x10e3/uL 0.0-0.2 by Automated count (test code = 704-7) Immature granulocytes/100 0 % not estab. leukocytes in Blood by Automated count (test code = 90426-9) Immature granulocytes 0.0 x10e3/uL 0.0-0.1 [#/volume] in Blood by Automated count (test code = 53264-1) Nucleated erythrocytes/100 specialist wound care leukocytes [Ratio] in Blood by Automated count (test code = 64398-4) Morphology [Interpretation] in specialist wound care Blood Narrative (test code = 75119-0) [facility] - Urine 2020-11-04 00:00:00 Test Item Value Reference Range Interpretation Comments Specific gravity of Urine (test 1.020 1.005-1.030 code = 2965-2) pH of Urine by Test strip (test 7.0 5.0-7.5 code = 5803-2) Color of Urine (test code = yellow yellow 5778-6) Appearance of Urine (test code = clear clear 5767-9) Leukocyte esterase [Presence] in negative negative Urine by Test strip (test code = 5799-2) Protein [Presence] in Urine by negative negative/trace Test strip (test code = 78087-3) Glucose [Presence] in Urine (test negative negative code = 2349-9) Ketones [Presence] in Urine by negative negative Test strip (test code = 2514-8) Hemoglobin [Presence] in Urine by negative negative Test strip (test code = 5794-3) Bilirubin.total [Presence] in negative negative Urine by Test strip (test code = 5770-3) Urobilinogen [Mass/volume] in 0.2 mg/dL 0.2-1.0 Urine by Test strip (test code = 21251-9) Nitrite [Presence] in Urine by negative negative Test strip (test code = 5802-4) Microscopic observation see below: [Identifier] in Urine sediment by Light microscopy (test code = 10824-5) Leukocytes [#/area] in Urine 0-5 0-5 sediment by Microscopy high power field (test code = 5821-4) Erythrocytes [#/area] in Urine 0-2 0-2 sediment by Microscopy high power field (test code = 37043-4) Epithelial cells [#/area] in Urine 0-10 0-10 sediment by Microscopy high power field (test code = 5787-7) Epithelial cells.renal [#/area] in specialist wound care Urine sediment by Microscopy high power field (test code = 52017-4) Casts [Presence] in Urine sediment specialist wound care by Light microscopy (test code = 76849-3) Casts [Type] in Urine sediment by specialist wound care Light microscopy (test code = 59169-8) Unidentified crystals [Presence] specialist wound care in Urine sediment by Light microscopy (test code = 5783-6) Crystals [type] in Urine sediment specialist wound care by Light microscopy (test code = 5782-8) Mucus [Presence] in Urine sediment present not estab. by Light microscopy (test code = 8247-9) Bacteria [#/area] in Urine none seen none seen/few sediment by Microscopy high power field (test code = 5769-5) Yeast [#/area] in Urine sediment specialist wound care by Microscopy high power field (test code = 5822-2) Trichomonas vaginalis [Presence] specialist wound care in Urine sediment by Light microscopy (test code = 5813-1) Urine sediment comments by Light specialist wound care microscopy Narrative (test code = 98236-1) [facility]
[2023-03-30] MEDS ORDERED: MORPHINE 2 MG/ML SYR ONE (15:49)
[2023-03-30] MEDS ORDERED: ONDANSETRON 4 MG/2 ML VIAL ONE (15:49)
[2023-03-30] MEDS ORDERED: NA CHLORIDE 0.9% 1,000 ML ONE (15:49)
[2023-03-30 16:03] LABS: Absolute Lymphocytes (CBC) 1.3 K/uL (0.7-4.9); Hematocrit 33.2 % (36.0-45.0); Lymphocytes % 22.4 % (15.3-44.8); MCV 84.8 fL (80-100); MPV 6.4 fL (7.6-11.3); RBC Red Blood Cell Count 3.91 M/uL (3.86-4.86)
[2023-03-30 16:22] LABS: Specific Gravity 1.012 (1.005-1.030); Urine Bacteria <20 /HPF (<20); Urine Bilirubin NEGATIVE (Negative); Urine Blood 3+ (OVER) (Negative); Urine Clarity Extremely Turbid (Clear); Urine Color Light-Orange (Yellow); Urine Glucose NEGATIVE (Negative); Urine Mucus 1+ /HPF (None Seen); Urine Protein 2+ (Negative); Urine RBC >50 /HPF (None Seen); Urine Urobilinogen Normal (Normal); Urine WBC Clump Many /HPF (None Seen)
[2023-03-30 16:27] LABS: Albumin 3.4 g/dL (3.4-5.0); Bilirubin Total 0.3 mg/dL (0.2-1.0); Potassium 4.1 mEq/L (3.5-5.1); Protein, Total 8.3 g/dL (6.4-8.2)
[2023-03-30] MEDS ORDERED: CEFTRIAXONE 1000 MG/VIAL ONE (16:55)
--- NOTE | 2023-03-30 17:03 | RAD REPORT ---
EXAM DESCRIPTION: CTStone Protocol - 03/30/2023 4:50 pm CLINICAL HISTORY: FLANK PAIN COMPARISON: No comparisons TECHNIQUE: CT of the abdomen and pelvis was performed. All CT scans are performed using dose optimization technique as appropriate and may include automated exposure control or mA/KV adjustment according to patient size. FINDINGS: Lower chest: No acute abnormality. Small hiatal hernia. Liver: No acute abnormality or suspicious lesions. Biliary: Cholecystectomy Stomach: No significant focal abnormality. Duodenum: No significant focal abnormality. Pancreas: No significant abnormality. Spleen: No significant abnormality. Adrenal: No suspicious lesions. Kidney/ureter: Severe bilateral hydronephrosis. Bilateral ureteral stents are present. Retroperitoneum: No retroperitoneal adenopathy. Vascular: No aneurysm. Atherosclerosis Bowel: No significant focal abnormality. Peritoneum: Small volume of pelvic free fluid. Bladder: Eccentric bladder wall thickening. Bladder gas is present. Stranding around the bladder is n oted. Reproductive: No adnexal masses. Bones: No acute fracture. Other: n/a IMPRESSION: Severe bilateral hydronephrosis despite the presence of the stents. This could be due to either stent dysfunction or bladder outlet obstruction. The bladder is diffusely thickened and has s ome bladder gas. Presumably, the patient has probably had a recent cystoscopy which better evaluated these findings.
[2023-03-30] MEDS ORDERED: MORPHINE 4 MG/ML SYR ONE ×2 (17:28→21:59)
--- NOTE | 2023-03-30 18:22 | EDPHYS ---
Physician Documentation [facility] Name: Annia Tan Age: 52 yrs Sex: Female : 1970 Arrival Date: 03/30/2023 Time: 14:48 Bed 6 Private MD: Jeff Joyce HPI: 03/30 15:40 This 52 yrs old Female presents to ER via Ambulatory with complaints of Pain, cp Kidney pain. 15:40 The patient complains of pain in the right flank. cp 15:40 The pain radiates to the abdomen. Onset: The symptoms/episode began/occurred 3 day(s) cp ago. Associated signs and symptoms: Pertinent positives: dysuria, hematuria, nausea, Pertinent negatives: diarrhea, fever, pain radiating to the lower extremities, vomiting. Severity of pain: in the emergency department the pain is unchanged despite home interventions. The patient has experienced similar episodes in the past, chronically, Patient reports history of chronic UTIs due to having to self cath. MANAGER UNION: 15:29 LMP N/A - Hysterectomy vg1 Historical: - Allergies: 15:29 Iodine; vg1 - PMHx: 15:29 Cervical Cancer; Hypertensive disorder; vg1 - PSHx: 15:29 CARMEN Kidney Stents; vg1 - Immunization history:: Client reports having NOT received the Covid vaccine. - Social history:: Smoking status: Patient denies any tobacco usage or history of. ROS: 15:45 Constitutional: Negative for body aches, chills, fever, poor PO intake. cp 15:45 Abdomen/GI: Positive for abdominal pain, nausea. cp 15:45 Back: Positive for flank pain, on the right. Exam: 15:50 Constitutional: The patient appears in no acute distress, alert, awake, non-toxic, well cp developed, well nourished, uncomfortable. 15:50 Head/Face: Normocephalic, atraumatic. cp 15:50 Eyes: Periorbital structures: appear normal, Conjunctiva: normal, no exudate, no injection, Sclera: no appreciated abnormality, Lids and lashes: appear normal, bilaterally. 15:50 ENT: External ear(s): are unremarkable, Nose: is normal, Mouth: Lips: moist, Oral mucosa: pink and intact, moist, Posterior pharynx: is normal, airway is patent, no erythema, no exudate. 15:50 Neck: ROM/movement: is normal, is supple, without pain, no range of motions limitations. 15:50 Chest/axilla: Inspection: normal. 15:50 Cardiovascular: Rate: normal, Rhythm: regular, Edema: is not appreciated, JVD: is not appreciated. 15:50 Respiratory: the patient does not display signs of respiratory distress, Respirations: normal, no use of accessory muscles, no retractions, labored breathing, is not present, Breath sounds: are clear throughout, no decreased breath sounds, no stridor, no wheezing. 15:50 Abdomen/GI: Inspection: abdomen appears normal, Bowel sounds: active, all quadrants, Palpation: soft, in all quadrants, moderate abdominal tenderness, in the right lower quadrant and left lower quadrant. 15:50 Back: CVA tenderness, that is severe, is noted bilaterally. 15:50 Skin: cellulitis, is not appreciated, no rash present. 15:50 Neuro: Orientation: to person, place \T\ time. Mentation: is normal, Motor: moves all fours, strength is normal, Gait: is steady. Vital Signs: 15:24 BP 132 / 94; Pulse 90; Resp 16; Temp 98.7(O); Pulse Ox 99% on R/A; Weight 54.43 kg; vg1 Height 4 ft. 11 in. ; Pain 10/10; 16:45 BP 136 / 86; Pulse 88; Resp 15; Pulse Ox 99% ; hb 17:53 BP 140 / 91; Pulse 85; Resp 16; Pulse Ox 99% on R/A; hb 18:26 BP 131 / 89; Pulse 71; Resp 15; Pulse Ox 99% on R/A; hb 19:33 BP 123 / 85; Pulse 71; Pulse Ox 99% ; vc1 21:00 BP 135 / 84; Pulse 76; Resp 15; Pulse Ox 100% on R/A; vc1 15:24 Body Mass Index 24.24 (54.43 kg, 149.86 cm) vg1 15:24 Pain Scale: Adult vg1 MDM: 15:33 Patient medically screened. munir 16:00 Differential diagnosis: nephrolithiasis, pyelonephritis, UTI, diverticulitis, cp pancreatitis, appendicitis, sepsis. 18:25 Data reviewed: vital signs, nurses notes, lab test result(s), radiologic studies, CT cp scan. 18:25 I considered the following discharge prescriptions or medication management in the emergency department Medications were administered in the Emergency Department. See MAR. Care significantly affected by the following chronic conditions: Hypertension. 19:51 ED course: accepting physician is DR Mayes \T\MARY Waller. cp 03/30 15:13 Order name: Urine W/Microscopic (UAM); Complete Time: 16:27 snw 03/30 16:27 Interpretation: Normal except: [facility] Extremely Turbid; UBLD 3+ (OVER); UPROT 2+; UESTR cp 500; UWBC >50; URBC >50; UWBC Clump Many. 03/30 15:28 Order name: CBC with Diff; Complete Time: 16:27 cp 03/30 16:28 Interpretation: HGB 11.1; HCT 33.2; PLT 429; MPV 6.4. cp 03/30 15:28 Order name: CMP; Complete Time: 16:28 cp 03/30 16:28 Interpretation: Normal except: NA 134; BUN 19; GFR 71; AST 11; ALK 124; TP 8.3; GLOB cp 4.9; A/G 0.7. 05 15:28 Order name: Lipase; Complete Time: 16:28 cp 03/30 16:25 Order name: Urine Culture EDMN 03/30 16:29 Order name: Lactate w/ 2H reflex if indic.; Complete Time: 17:49 cp 03/30 17:49 Interpretation: Reviewed. 03/30 16:29 Order name: Blood Culture Adult (2) cp 03/30 16:30 Order name: CT Stone Protocol; Complete Time: 17:18 cp 03/30 15:28 Order name: IV Saline Lock; Complete Time: 15:58 cp 03/30 15:28 Order name: Labs collected and sent; Complete Time: 15:58 cp Administered Medications: 15:57 Drug: NS 0.9% IV 1000 ml Route: IV; Rate: 500 ml/hr; Site: left antecubital; hb 17:00 Follow up: Response: No adverse reaction; IV Status: Completed infusion; IV Intake: hb 1000ml 15:57 Drug: morphine IVP or IV 2 mg Route: IVP; Infused Over: 4 mins; Site: left antecubital; hb 17:00 Follow up: Response: No adverse reaction hb 15:58 Drug: Ondansetron IVP 4 mg Route: IVP; Site: left antecubital; hb 16:30 Follow up: Response: No adverse reaction hb 17:20 Drug: Rocephin - Rocephin (cefTRIAXone) IVPB 1 grams Route: IVPB; Infused Over: 30 hb mins; Site: left antecubital; 17:53 Follow up: Response: No adverse reaction hb 19:00 Follow up: IV Status: Completed infusion; IV Intake: 50ml vc1 17:25 Drug: morphine IVP or IV 4 mg Route: IVP; Infused Over: 4 mins; Site: left antecubital; hb 17:53 Follow up: Response: No adverse reaction hb 21:56 Drug: morphine IVP or IV 4 mg Route: IVP; Infused Over: 4 mins; Site: left antecubital; vc1 21:56 Follow up: Response: administered at transfer vc1 Disposition Summary: 03/30/23 18:21 Transfer Ordered Transfer Location: Other Acute Care Facility cp Reason: Higher level of care cp Condition: Stable cp Problem: new cp Symptoms: have improved cp Accepting Physician: Doctor(03/30/23 21:58) vc1 Diagnosis - Pyelonephritis acute cp Forms: - Medication Reconciliation Form cp - SBAR form cp Signatures: Dispatcher [employer] EDMS Jeff Peace MD MD cha Page, Corey, PA PA cp Pat Salcedo, RN RN Gabriella Dixon RN RN vg1 Freedom Adams RN RN as6 Mali Bear RN RN vc1 Corrections: (The following items were deleted from the chart) 16:36 15:29 Abdomen Pelvis W Con+CT.RAD.BRZ ordered. EDMS EDMS 21:58 18:21 Doctor cp vc1
--- NOTE | 2023-03-30 18:22 | ER ---
Nurse's Notes [facility] Name: Annia Tan Age: 52 yrs Sex: Female : 1970 Arrival Date: 03/30/2023 Time: 14:48 Bed 6 Private MD: Diagnosis: Pyelonephritis acute Presentation: 03/30 15:24 Chief complaint: Patient states: Right flank pain that goes to right side of ABD, also vg1 states pelvic pain and blood in urine. Pt also stated self caths at home. Coronavirus screen: Vaccine status: Patient reports being unvaccinated. Client denies travel out of the [place] in the last 14 days. Ebola Screen: Patient negative for fever greater than or equal to 101.5 degrees Fahrenheit, and additional compatible Ebola Virus Disease symptoms Patient denies exposure to infectious person. Patient denies travel to an Ebola-affected area in the 21 days before illness onset. Initial Sepsis Screen: Does the patient meet any 2 criteria? No. Patient's initial sepsis screen is negative. Does the patient have a suspected source of infection? No. Patient's initial sepsis screen is negative. Risk Assessment: Do you want to hurt yourself or someone else? Patient reports no desire to harm self or others. Onset of symptoms was March 27, 2023. 15:24 Method Of Arrival: Ambulatory vg1 15:24 Acuity: LEANNE 3 vg1 Triage Assessment: 15:29 General: Appears uncomfortable, Behavior is cooperative. Pain: Complains of pain in vg1 back and pelvis Pain currently is 10 out of 10 on a pain scale. : Reports burning with urination, pain vaginal bleeding that is. 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 - Social history:: Smoking status: Patient denies any tobacco usage or history of. Screenin:58 [facility] ED Fall Risk Assessment (Adult) Score/Fall Risk Level 0 - 2 = Low Risk hb Oriented to surroundings, Maintained a safe environment. Abuse screen: Denies threats or abuse. Denies injuries from another. Nutritional screening: No deficits noted. Tuberculosis screening: No symptoms or risk factors identified. Assessment: 15:58 General: Appears in no apparent distress. uncomfortable, Behavior is calm, cooperative. hb Pain: Pain currently is 9 out of 10 on a pain scale. Neuro: Level of Consciousness is awake, alert, obeys commands, Oriented to person, place, time, situation. Cardiovascular: Patient's skin is warm and dry. Respiratory: Respiratory effort is even, unlabored, Respiratory pattern is regular, symmetrical. GI: Reports lower abdominal pain, nausea. : Reports self caths, c/o suprapubic pain that radiates to right abdomen. EENT: No signs and/or symptoms were reported regarding the EENT system. Derm: Skin is pink, warm \T\ dry. Musculoskeletal: No signs and/or symptoms reported regarding the musculoskeletal system. 17:53 Reassessment: Patient appears in no apparent distress at this time. Patient and/or hb family updated on plan of care and expected duration. Pain level reassessed. Patient is alert, oriented x 3, equal unlabored respirations, skin warm/dry/pink. 18:26 Reassessment: Patient appears in no apparent distress at this time. Patient and/or hb family updated on plan of care and expected duration. Pain level reassessed. Patient is alert, oriented x 3, equal unlabored respirations, skin warm/dry/pink. 19:33 Reassessment: Patient and/or family updated on plan of care and expected duration. Pain vc1 level reassessed. Patient is alert, oriented x 3, equal unlabored respirations, skin warm/dry/pink. 21:00 Reassessment: Patient appears in no apparent distress at this time. Patient and/or vc1 family updated on plan of care and expected duration. Pain level reassessed. Patient is alert, oriented x 3, equal unlabored respirations, skin warm/dry/pink. Vital Signs: 15:24 BP 132 / 94; Pulse 90; Resp 16; Temp 98.7(O); Pulse Ox 99% on R/A; Weight 54.43 kg; vg1 Height 4 ft. 11 in. ; Pain 10/10; 16:45 BP 136 / 86; Pulse 88; Resp 15; Pulse Ox 99% ; hb 17:53 BP 140 / 91; Pulse 85; Resp 16; Pulse Ox 99% on R/A; hb 18:26 BP 131 / 89; Pulse 71; Resp 15; Pulse Ox 99% on R/A; hb 19:33 BP 123 / 85; Pulse 71; Pulse Ox 99% ; vc1 21:00 BP 135 / 84; Pulse 76; Resp 15; Pulse Ox 100% on R/A; vc1 15:24 Body Mass Index 24.24 (54.43 kg, 149.86 cm) vg1 15:24 Pain Scale: Adult vg1 ED Course: 14:50 Patient arrived in ED. ts1 15:17 Jeff Manzano PA is PHCP. cp 15:17 Jeff Peace MD is Attending Physician. cp 15:29 Triage completed. vg1 15:29 Arm band placed on. vg1 15:36 Radiology exam delayed due to lab results not completed at this time. (BUN/Creatinine) jg10 IV insertion attempt and/or patient not having appropriate IV at this time. 15:41 Pat Salcedo, RN is Primary Nurse. hb 15:56 Inserted saline lock: 22 gauge in left antecubital area, using aseptic technique. Blood hb collected. 15:58 Patient has correct armband on for positive identification. hb 16:51 CT Stone Protocol In Process Unspecified. EDMS 18:27 called and left message with the Elevator Repairer Helper for [facility] to initiate a transfer/. 18:44 call and attempted to initiate a transfer with Kanika FerreiraTransmission Mechanic/ Kanika asks eb for us to call back in 30 minutes they are doing shift change. provider notified. 19:17 Called and spoke with Kanika ( House Sup) to get an update regarding bed placement. She wm stated it would be 1-3 hrs before they can give bed due to needing to discharge. 19:50 Pt accepted for transfer by Dr. Mayes. wm 21:57 No provider procedures requiring assistance completed. Patient transferred, IV remains vc1 in place. Administered Medications: 15:57 Drug: NS 0.9% IV 1000 ml Route: IV; Rate: 500 ml/hr; Site: left antecubital; hb 17:00 Follow up: Response: No adverse reaction; IV Status: Completed infusion; IV Intake: hb 1000ml 15:57 Drug: morphine IVP or IV 2 mg Route: IVP; Infused Over: 4 mins; Site: left antecubital; hb 17:00 Follow up: Response: No adverse reaction hb 15:58 Drug: Ondansetron IVP 4 mg Route: IVP; Site: left antecubital; hb 16:30 Follow up: Response: No adverse reaction hb 17:20 Drug: Rocephin - Rocephin (cefTRIAXone) IVPB 1 grams Route: IVPB; Infused Over: 30 hb mins; Site: left antecubital; 17:53 Follow up: Response: No adverse reaction hb 19:00 Follow up: IV Status: Completed infusion; IV Intake: 50ml vc1 17:25 Drug: morphine IVP or IV 4 mg Route: IVP; Infused Over: 4 mins; Site: left antecubital; hb 17:53 Follow up: Response: No adverse reaction hb 21:56 Drug: morphine IVP or IV 4 mg Route: IVP; Infused Over: 4 mins; Site: left antecubital; vc1 21:56 Follow up: Response: administered at transfer vc1 Medication: 15:58 VIS not applicable for this client. hb Intake: 17:00 IV: 1000ml; Total: 1000ml. hb 19:00 IV: 50ml; Total: 1050ml. vc1 Outcome: 18:21 ER care complete, transfer ordered by MD. 21:57 Transferred by ground EMS to [facility], Transfer form completed. vc1 X-rays sent w/ patient. Note: transferred to [facility] 21:57 Condition: good 21:57 Instructed on the need for transfer. 21:58 Patient left the ED. vc1 Signatures: Dispatcher [employer] EDJeff Christian PA PA cp Baxter, Heather RN Marcy Paulino Victoria, RN RN vg1 Eliz Samuel Vanessa, RN RN vc1 Carmen Trujillo0 Ignacia Carpenter PAS PAS ts1
[2023-03-30 22:23] VITALS: TEMP 98.7
[2023-03-30 22:32] VITALS: BP 135/84; O2SAT 100
== END 2023-03-30 21:58 ==
LOC: ER 14:48
DX: N10 Acute pyelonephritis (principal); I10 Essential (primary) hypertension; Z91.048 Other nonmedicinal substance allergy status
CPT/HCPCS: 96365; 96361; 87040 ×2; 87088; 85025; 81001; 87086; 36415; 83605; 83690; 80053; 76377; 74176; 96375; 99285; 96366; J2270; J2405; J7030; J0696